=== PATIENT | male | born 1965 | race African-American/Black ===

== ENCOUNTER 2016-09-06 20:22 | Inpatient (IN) | payer SELFPAY ==
[~2016-09-06] VITALS: Ht 185.4 cm; Wt 95.4 kg
[2016-09-06 20:23] VITALS: BP 222/132; PULSE 116; RESP 18; TEMP 98.8; O2SAT 100
[2016-09-06 20:47] VITALS: BP 224/131; PULSE 108; RESP 18; O2SAT 98
[2016-09-06] MEDS ORDERED: MULTTAB67 PO (20:49)
--- NOTE | 2016-09-06 20:56 | PD ---
HPI Chief Complaint: Hypertension Time Seen by Provider: 20:46 Travel History International Travel<30 days: No Contact w/Intl Traveler<30days: [place] Traveled to: [facility] Traveled to known affect area: No History of Present Illness HPI This is a 51-year-old male who is from [place] who presents to the emergency department having had several days pulsating in his head, feeling like his hearing his blood vessels in his head, constant, moderate severity having checked his blood pressure at home and it was in the 250s. His gave him some garlic but his symptoms did not improve. He denies any associated vomiting , numbness, weakness, difficulty walking or difficulty talking. He denies any chest pain or trouble breathing. He has been told his blood pressures been high in the past but he doesn't take any medicines. He just takes iron supplements and multivitamins. He does say several weeks ago he tried a sample of something from the [employer] store called [employer] that he hasn't taken anything in the past week or 2. He denies taking any decongestants, using any drugs and he doesn't drink alcohol. PFSH Past Medical History Cardiovascular Problems: Yes (HTN) Social History Alcohol Use: No Tobacco Use: No Substance Use: No Allergies-Medications (Allergen,Severity, Reaction): Coded Allergies: Contrast Media (Verified Allergy, Intermediate, 09/06/16) swelling Reported Meds & Prescriptions Reported Meds & Active Scripts Active Reported Multiple Vitamin 1 Tab 1 Tab PO DAILY Review of Systems Except as stated in HPI: all other systems reviewed are Neg Physical Exam Narrative GENERAL:Well appearing, no acute distress SKIN: Focused skin assessment warm and dry. HEAD: Atraumatic. Normocephalic. EYES: Pupils equal and round. No injection or drainage. ENT: Moist mucous membranes NECK: Trachea midline. CARDIOVASCULAR: Regular rate and rhythm. No murmur appreciated. RESPIRATORY: Clear to auscultation. Breath sounds equal bilaterally. GASTROINTESTINAL: Abdomen soft, non-tender, nondistended. MUSCULOSKELETAL: No obvious deformities. NEUROLOGICAL: Awake and alert. No obvious cranial nerve deficits. No dysarthria or aphasia. Moving all extremities. PSYCHIATRIC: Appropriate mood and affect; insight and judgment normal. Data Data Last Documented VS Vital Signs Date Time Temp Pulse Resp B/P Pulse Ox O2 Delivery O2 Flow Rate FiO2 09/06/16 23:06 81 18 206/127 99 Room Air 09/06/16 20:23 98.8 Orders Complete Blood Count With Diff (09/06/16 20:54) Comprehensive Metabolic Panel (09/06/16 20:54) ^ Insert Iv (09/06/16 20:54) Thyroid Stimulating Hormone (09/06/16 20:54) Electrocardiogram (09/06/16 ) Ct Brain W/O Iv Contrast(Rout) (09/06/16 ) Labetalol Inj (Trandate Inj) (09/06/16 21:00) Sodium Chlor 0.9% 1000 Ml Inj (Ns 1000 M (09/06/16 21:00) Troponin I (09/06/16 22:57) Enalaprilat Inj (Vasotec Inj) (09/06/16 23:15) Admit Order (Ed Use Only) (09/06/16 23:11) Place In Observation (09/06/16 ) Vital Signs (Adult) BEATRICE.Q4H (09/06/16 23:11) Activity Oob Ad Brenda (09/06/16 23:11) Sodium Chloride 0.9% Flush (Ns Flush) (09/06/16 23:15) Sodium Chloride 0.9% Flush (Ns Flush) (09/07/16 09:00) Labs Laboratory Tests Test 09/06/16 21:45 White Blood Count 8.3 TH/MM3 Red Blood Count 4.72 MIL/MM3 Hemoglobin 13.8 GM/DL Hematocrit 39.2 % Mean Corpuscular Volume 83.1 FL Mean Corpuscular Hemoglobin 29.3 PG Mean Corpuscular Hemoglobin 35.3 % Concent Red Cell Distribution Width 12.8 % Platelet Count 171 TH/MM3 Mean Platelet Volume 10.0 FL Neutrophils (%) (Auto) 63.2 % Lymphocytes (%) (Auto) 24.3 % Monocytes (%) (Auto) 7.3 % Eosinophils (%) (Auto) 4.0 % Basophils (%) (Auto) 1.2 % Neutrophils # (Auto) 5.3 TH/MM3 Lymphocytes # (Auto) 2.0 TH/MM3 Monocytes # (Auto) 0.6 TH/MM3 Eosinophils # (Auto) 0.3 TH/MM3 Basophils # (Auto) 0.1 TH/MM3 CBC Comment DIFF FINAL Differential Comment Sodium Level 140 MEQ/L Potassium Level 3.6 MEQ/L Chloride Level 104 MEQ/L Carbon Dioxide Level 28.8 MEQ/L Anion Gap 7 MEQ/L Blood Urea Nitrogen 16 MG/DL Creatinine 1.22 MG/DL Estimat Glomerular Filtration 75 ML/MIN Rate Random Glucose 127 MG/DL Calcium Level 8.9 MG/DL Total Bilirubin 0.6 MG/DL Aspartate Amino Transf 39 U/L (AST/SGOT) Alanine Aminotransferase 49 U/L (ALT/SGPT) Alkaline Phosphatase 63 U/L Troponin I 0.03 NG/ML Total Protein 7.7 GM/DL Albumin 3.9 GM/DL Thyroid Stimulating Hormone 0.703 uIU/ML 3rd Gen [facility] Medical Decision Making Medical Screen Exam Complete: Yes Emergency Medical Condition: Yes Interpretation(s) No leukocytosis Electrolytes are reassuring Troponin is normal TSH is normal Urinalysis is negative for infection Urine drug screen is negative Last [address] 09/06/16 0000 Signed Impressions: Service Date/Time: Tuesday, September 06, 2016 21:08 - CONCLUSION: Negative noncontrast CT brain. Austyn Stark MD Differential Diagnosis Hypertensive urgency, hypertensive emergency, hyperthyroidism, acute alcohol withdrawal, substance intoxication Narrative Course This is a 51-year-old male who presents the emergency department with tachycardia and hypertension with some generalized weakness and headache. He is markedly hypertensive on arrival. He was given 30 mg total of labetalol but has now opted not improved in the emergency department. He is normal neurologic exam, CT was negative and labs are reassuring. I couldn't elicit any substances that the patient might have ingested to causes vital signs to appear the way they do. I think the patient requires admission for continued antihypertensive therapy and workup of his refractory hypertension Critical Care Narrative Aggregate critical care time was 35 minutes. Time to perform other separately billable procedures was not included in the critical care time. My time did not include minutes spent treating any other patients simultaneously or on activities that did not directly contribute to the patient's treatment. The services I provided to this patient were to treat and/or prevent clinically significant deterioration that could result in: disability, I provided critical care services requiring my management, as noted below: Chart data review, documentation time, medication orders and management, vital sign assessments/reviewing monitor data, ordering and reviewing lab tests, ordering and interpreting/reviewing x-rays and diagnostic studies, care of the patient and discussion of the patient with the admitting physicians. Diagnosis Primary Impression: Hypertensive urgency Admitting Information Admitting Physician Requests: it Agnes Marquez MD Sep 06, 2016 20:56
[2016-09-06] MEDS ORDERED: SODIUM CHLOR 0.9% 1000 ML INJ 1,000 ML IV SCH ×2 (21:00→23:26)
[2016-09-06] MEDS: LABETALOL HCL 100 MG/20 ML VIAL IV PUSH PRN ×3 (21:05→22:20)
[2016-09-06 21:50] VITALS: BP 193/115; PULSE 85; RESP 18; O2SAT 98
[2016-09-06 22:18] LABS: AUTOMATED NEUTROPHIL # 5.3 TH/MM3 (1.8-7.7); BASOPHIL # 0.1 TH/MM3 (0-0.2); BASOPHIL % 1.2 % (0.0-2.0); EOSINOPHIL # 0.3 TH/MM3 (0-0.4); HEMATOCRIT 39.2 % (39.0-51.0); HEMO FLAGS DIFF FINAL; LYMPH % 24.3 % (9.0-44.0); MEAN CELL VOLUME 83.1 FL (80.0-100.0); MEAN CORPUSCULAR HEMOGLOBIN 29.3 PG (27.0-34.0); MEAN CORPUSCULAR HGB CONC 35.3 % (32.0-36.0); MONO % 7.3 % (0.0-8.0); NEUT % 63.2 % (16.0-70.0); PLATELET COUNT 171 TH/MM3 (150-450); RED BLOOD COUNT 4.72 MIL/MM3 (4.50-5.90); RED CELL DISTRIBUTION WIDTH 12.8 % (11.6-17.2); WHITE BLOOD COUNT 8.3 TH/MM3 (4.0-11.0)
[2016-09-06 22:19] VITALS: BP 209/125; PULSE 86; RESP 18; O2SAT 99
--- NOTE | 2016-09-06 22:20 | RADRPT ---
EXAM DATE/TIME: 09/06/2016 21:08 [facility] COMPARISON: No previous studies available for comparison. INDICATIONS : Cephalgia with elevated blood pressure. RADIATION DOSE: 56.53 CTDIvol (mGy) MEDICAL HISTORY : Hypertension. SURGICAL HISTORY : None. ENCOUNTER: Initial ACUITY: 1 day PAIN SCALE: 10/10 LOCATION: cranial TECHNIQUE: Multiple contiguous axial images were obtained of the head. Using automated exposure control and adj ustment of the mA and/or kV according to patient size, radiation dose was kept as low as reasonably a chievable to obtain optimal diagnostic quality images. FINDINGS: CEREBRUM: The ventricles are normal for age. No evidence of midline shift, mass lesion, hemorrhage or acute in farction. No extra-axial fluid collections are seen. POSTERIOR FOSSA: The cerebellum and brainstem are intact. The 4th ventricle is midline. The cerebellopontine angle i s unremarkable. EXTRACRANIAL: The visualized portion of the orbits is intact. SKULL: The calvaria is intact. No evidence of skull fracture. CONCLUSION: Negative noncontrast CT brain. Austyn Stark MD on September 06, 2016 at 22:18 Board Certified Radiologist. This report was verified electronically.
[2016-09-06 22:45] LABS: ALT (GPT) 49 U/L (12-78); ANION GAP 7 MEQ/L (5-15); AST (GOT) 39 U/L (15-37); BICARBONATE 28.8 MEQ/L (21.0-32.0); BLOOD UREA NITROGEN 16 MG/DL (7-18); CHLORIDE 104 MEQ/L (98-107); GLOMERULAR FILTRATION RATE 75 ML/MIN (>89); POTASSIUM 3.6 MEQ/L (3.5-5.1); SODIUM (NA) 140 MEQ/L (136-145)
[2016-09-06 22:52] LABS: ALKALINE PHOSPHATASE 63 U/L (45-117); TOTAL BILIRUBIN ADULT 0.6 MG/DL (0.2-1.0)
[2016-09-06 23:06] VITALS: BP 206/127; PULSE 81; RESP 18; O2SAT 99
[2016-09-06] MEDS ORDERED: ENALAPRILAT 2.5 MG/2 ML VIAL IV PUSH ONE (23:15)
[2016-09-06] MEDS ORDERED: SODIUM CHLORIDE 0.9% FLUSH 10 ML FLUSH IV FLUSH SCH (23:15)
[2016-09-06 23:25] VITALS: BP 208/123; PULSE 81; RESP 16; O2SAT 100
[2016-09-06] MEDS ORDERED: ONDANSETRON HCL 4 MG/2 ML VIAL IVP PRN (23:30)
[2016-09-06] MEDS ORDERED: BISACODYL 10 MG SUPP RECTAL PRN (23:30)
[2016-09-06] MEDS ORDERED: TEMAZEPAM 15 MG CAP PO PRN (23:30)
[2016-09-06] MEDS ORDERED: ACETAMINOPHEN 325 MG TAB PO PRN (23:30)
[2016-09-06] MEDS ORDERED: cloNIDine HCL 0.1 MG TAB PO PRN (23:30)
[2016-09-06] MEDS ORDERED: hydrALAZINE HCL 20 MG/ML VIAL IV PRN (23:30)
[2016-09-06] MEDS ORDERED: SODIUM CHLORIDE 0.9% FLUSH 10 ML FLUSH IV FLUSH PRN (23:30)
[2016-09-06] MEDS ORDERED: LACTULOSE SYRUP 20 GM/30 ML CUP PO PRN (23:30)
[2016-09-06] MEDS ORDERED: niCARdipine INJ 25 MG in SODIUM CHLOR 0.9% 250 ML INJ 250 ML IV ONE (23:30)
[2016-09-06] MEDS ORDERED: SENNOSIDES 8.6 MG TAB PO PRN (23:30)
[2016-09-06] MEDS ORDERED: MAGNESIUM HYDROXIDE SUSP 30 ML CUP PO PRN (23:30)
[2016-09-06] MEDS ORDERED: IBUPROFEN 400 MG TAB PO PRN (23:30)
--- NOTE | 2016-09-06 23:32 | HHI.HP ---
[facility] Service Family Medicine Primary Care Physician No Primary Care Physician Admission Diagnosis hypertensive urgency Diagnoses: International Travel<30 Days: No Contact w/Intl Traveler<30days: [place] Traveled to: [facility] Known Affected Area: No History of Present Illness Mr. Edwin marquez 51 y/o M with a PMHx of HTN presenting with a pounding headache for several days. He states that he feels that a "drum was beating in his head" for the last 3-4 days. He had a friend checked his BP at home and was elevated, but is not able to tell me the exact SBP and DBP. He tried to use garlic to lower his BP, but his symptoms did not improve so he decided to come to the hospital for evaluation. He states that he was diagnosed with HTN in the past in [place], but was not started on any medications. He then changed his diet and his BP was controlled per his report. However his diet has not been well controlled recently which he believes could be causing his symptoms. Denies any vision changes, numbness, weakness, difficulty ambulating, difficulty talking, chest pain, SOB, or NVD. He has seen a physician in [place], but not in "quite some time." He has been in [place] for the past 3 months visiting friends. His only medication is an iron supplement for anemia. Recently he has tried OTC Neugenix (testosterone booster). Review of Systems Constitutional: DENIES: Fever, Weight gain, Weight loss, Chills, Dizziness, Night Sweats Endocrine: DENIES: Polyuria Eyes: DENIES: Blurred vision, Diplopia Ears, nose, mouth, throat: DENIES: Throat pain, Running Nose Respiratory: DENIES: Cough, Shortness of breath Cardiovascular: DENIES: Chest pain, Palpitations Gastrointestinal: DENIES: Abdominal pain, Constipation, Diarrhea, Nausea, Vomiting Genitourinary: DENIES: Dysuria Musculoskeletal: DENIES: Joint pain Hematologic/lymphatic: DENIES: Lymphadenopathy Neurologic: COMPLAINS OF: Headache Psychiatric: DENIES: Mood changes Past Family Social History Past Medical History Anemia - currently on iron replacement HTN Past Surgical History Denies any PSHx Reported Medications Newgenics - testosterone supplementation Iron supplements Allergies: Coded Allergies: Contrast Media (Verified Allergy, Intermediate, 09/06/16) swelling Family History Father - from "high blood pressure" Mother - from unknown cause, DM Multiple brothers and sister, no medical problems reported including sudden cardiac , [place], ACS. Social History Visiting friends from [place] for the past 3 months. 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 Smoke - Denies Alcohol - Drinks wine occasionally, with last drink over 2 months ago Illicit - Denies any illicit drug use Physical Exam Vital Signs Vital Signs Date Time Temp Pulse Resp B/P Pulse Ox O2 Delivery O2 Flow Rate FiO2 09/06/16 23:25 81 16 208/123 100 09/06/16 23:06 81 18 206/127 99 Room Air 09/06/16 22:19 86 18 209/125 99 Room Air 09/06/16 21:50 85 18 193/115 98 Room Air 09/06/16 20:47 108 18 224/131 98 Room Air 09/06/16 20:23 98.8 116 18 222/132 100 Room Air Physical Exam GENERAL: Well-nourished, well-developed patient 51-year-old male lying in bed in no acute distress. SKIN: Warm and dry. No rash. HEENT: Atraumatic, normocephalic with EOMI. PERRLA. BL conjunctival injection with tearing of the eyes. Oropharynx clear with no erythema or exudate. MMM. No LAD or JVD appreciated. No rhinorrhea. CARDIOVASCULAR: Regular rate and rhythm without obvious murmurs, gallops, or rubs. RESPIRATORY: Clear to auscultation bilaterally with no CRW. No increased work of breathing. GASTROINTESTINAL: Abdomen soft, non-tender, nondistended with positive bowel sounds. No renal bruits appreciated. No masses or hepatosplenomegaly appreciated. MUSCULOSKELETAL: No cyanosis or edema. Strength grossly WNL. 2+ pulses in all 4 extremities. BACK: Nontender without obvious deformity. No CVA tenderness. NEURO/PSYCH: Afocal. Awake, alert, and oriented x3. Cranial nerves II through XII intact. No dysarthria or aphasia. Strength and sensation in all 4 extremities within normal limits. No focal abnormalities. Appropriate judgment, speech, and interaction with examiner. Laboratory Laboratory Tests Test 09/06/16 21:45 White Blood Count 8.3 Red Blood Count 4.72 Hemoglobin 13.8 Hematocrit 39.2 Mean Corpuscular Volume 83.1 Mean Corpuscular Hemoglobin 29.3 Mean Corpuscular Hemoglobin 35.3 Concent Red Cell Distribution Width 12.8 Platelet Count 171 Mean Platelet Volume 10.0 Neutrophils (%) (Auto) 63.2 Lymphocytes (%) (Auto) 24.3 Monocytes (%) (Auto) 7.3 Eosinophils (%) (Auto) 4.0 Basophils (%) (Auto) 1.2 Neutrophils # (Auto) 5.3 Lymphocytes # (Auto) 2.0 Monocytes # (Auto) 0.6 Eosinophils # (Auto) 0.3 Basophils # (Auto) 0.1 CBC Comment DIFF FINAL Differential Comment Sodium Level 140 Potassium Level 3.6 Chloride Level 104 Carbon Dioxide Level 28.8 Anion Gap 7 Blood Urea Nitrogen 16 Creatinine 1.22 Estimat Glomerular Filtration 75 Rate Random Glucose 127 Calcium Level 8.9 Total Bilirubin 0.6 Aspartate Amino Transf 39 (AST/SGOT) Alanine Aminotransferase 49 (ALT/SGPT) Alkaline Phosphatase 63 Troponin I 0.03 Total Protein 7.7 Albumin 3.9 Thyroid Stimulating Hormone 0.703 3rd Gen Result Diagram: 09/06/16 21409/06/16 214 Imaging Last [address] 09/06/16 0000 Signed Impressions: Service Date/Time: Tuesday, September 06, 2016 21:08 - CONCLUSION: Negative noncontrast CT brain. Austyn Stark MD Assessment and Plan Assessment and Plan Mr. Pineda alma 51 y/o M with a PMHx of HTN presenting with hypertensive urgency. He will be admitted for treatment and observation of his blood pressure. Code Status Full Discussed Condition With Dr. Motta, ER Physician Dr. Valenzuela Problem List: (1) Hypertensive urgency Status: Acute Plan: Patient with history of hypertension presenting with hypertensive urgency. On presentation his blood pressure was 222/132. Currently on examination his blood pressure is 208/117 without signs of organ damage. He will be admitted to the ICU for further monitoring and lowering of his bread pressure per nicardipine protocol with a goal of lowering his BP by 20% in the first 24 hours. Etiology possibly from chronic untreated HTN or recent addition of Nugenix (testosterone enhancement). Head CT: Negative noncontrast CT brain. EKG: Sinus tachycardia to a rate of 103. First-degree AV block with WI interval of 0.213. Left ventricular hypertrophy (per medical team read) CBC: WBC 8.3, H/H 13/39, platelets 171 CMP: Glucose 127, AST 39, otherwise within normal limits Troponin: 0.03 TSH 0.703 UA: Negative Urine toxicology: Negative Lipid profile: Pending Regular diet with salt restriction Cardiac monitoring Strict I/Os Pulse oximetry with supplemental oxygen when necessary Admission to the ICU Medications: 1 L normal saline bolus, labetalol 10 mg 3, and Vasotec 1 given in ER Labetalol 10 mg IV every 20 minutes when necessary for BP greater than 200/100 Clonidine 0.1 mg by mouth every 6 hours for BP >180/100 (2) Nutrition, metabolism, and development symptoms Status: Acute Plan: Fluids: Tolerating fluids were mouth Diet: Regular diet as tolerated with sodium restriction Electrolytes: Within normal limits, continue to monitor Prophylaxis: Restoril when necessary for insomnia, Zofran when necessary for nausea/vomiting, Tylenol PRN for pain, Constipation regimen (3) No contraindication to deep vein thrombosis (DVT) prophylaxis Status: Acute Plan: Heparin 5000 units every 8 hours SCD/TEDs Physician Certification 2 Midnight Certification Type: Admission for Inpatient Services Order for Inpatient Services The services are ordered in accordance with Medicare regulations or non- Medicare payer requirements, as applicable. In the case of services not specified as inpatient-only, they are appropriately provided as inpatient services in accordance with the 2-midnight benchmark. Estimated LOS (days): 3 3 days is the estimated time the patient will need to remain in the hospital, assuming treatment plan goals are met and no additional complications. Post-Hospital Plan: Home Sea Braxton MD R1 Sep 06, 2016 23:31
[2016-09-06 23:47] LABS: BLOOD, URINE NEG (NEG); COMMENT (UR) CULT NOT INDICATED; CULTURE IF INDICATED CULT NOT INDICATED; GLUCOSE,URINE NEG (NEG); KETONE, URINE NEG (NEG); NITRITE,URINE NEG (NEG); PH, URINE 7.5 (5.0-8.5); URINE COLOR LIGHT-YELLOW (YELLW/STRAW)
[2016-09-06 23:54] LABS: AMPHETAMINE, URINE NEG (NEG); BARBITURATES, URINE NEG (NEG); COCAINE, URINE NEG (NEG)
[2016-09-07] VITALS (18 sets, daily range): BP systolic 129–191; BP diastolic 72–117; PULSE 65–88; RESP 15–25; TEMP 98–98.9; O2SAT 97–100
[2016-09-07] MEDS ORDERED: CHLORHEXIDINE GLUCONATE 2 % 1 PACK (2 CLOTHS)(extra cloths) TOPICAL PRN (01:00)
[2016-09-07] MEDS: CHLORHEXIDINE GLUCONATE 2 % 1 PACK (2 CLOTHS)(taper/protocol) TOPICAL SCH ×2 (03:58→22:03)
[2016-09-07] MEDS: HEPARIN SODIUM - SQ 10,000 UNITS/ML VIAL SQ SCH ×3 (06:08→22:03)
[2016-09-07 06:30] LABS: AUTOMATED NEUTROPHIL # 4.9 TH/MM3 (1.8-7.7); BASOPHIL # 0.1 TH/MM3 (0-0.2); BASOPHIL % 0.8 % (0.0-2.0); EOSINOPHIL # 0.3 TH/MM3 (0-0.4); EOSINOPHIL % 3.5 % (0.0-4.0); HEMATOCRIT 40.7 % (39.0-51.0); HEMO FLAGS DIFF FINAL; LYMPH % 24.9 % (9.0-44.0); LYMPHOCYTE # 1.9 TH/MM3 (1.0-4.8); MEAN CELL VOLUME 83.6 FL (80.0-100.0); MEAN CORPUSCULAR HEMOGLOBIN 29.8 PG (27.0-34.0); MEAN CORPUSCULAR HGB CONC 35.6 % (32.0-36.0); MONO % 6.7 % (0.0-8.0); NEUT % 64.1 % (16.0-70.0); PLATELET COUNT 156 TH/MM3 (150-450); RED BLOOD COUNT 4.88 MIL/MM3 (4.50-5.90); RED CELL DISTRIBUTION WIDTH 12.6 % (11.6-17.2); WHITE BLOOD COUNT 7.6 TH/MM3 (4.0-11.0)
[2016-09-07 07:23] LABS: BICARBONATE 27.5 MEQ/L (21.0-32.0); POTASSIUM 3.5 MEQ/L (3.5-5.1)
[2016-09-07] MEDS ORDERED: POTASSIUM CHLORIDE 10 MEQ CONTROLLED RELEASE TAB PO ONE (07:45)
[2016-09-07] MEDS: DOCUSATE SODIUM 50 MG/SENNA 8.6 MG TAB PO SCH ×2 (09:13→22:03)
[2016-09-07] MEDS: SODIUM CHLORIDE 0.9% FLUSH 10 ML FLUSH IV FLUSH SCH ×3 (09:14→22:03)
--- NOTE | 2016-09-07 11:50 | HHI.FPPN ---
Subjective Remarks Mr. Pineda is a 51-year-old male from [place] who presented to the emergency department with a throbbing, pounding headache for the day prior to admission. He has history of previous similar problem, but this headache is more severe. He is here visiting friends and was given garlic as a therapy for his hypertension but this did not seem to help. He is on no medication for his blood pressure. He had no other symptoms at the time of presentation. At home, he takes iron, and a medication [id number] that has been vitamins and some sort of testosterone minute. Please see history and physical examination for this hospitalization for additional historical details including past, family, social history and review of systems at the time of admission. This morning he reports that he last took that perhaps 2 weeks ago. He says his headache is much improved, no throbbing. Otherwise has no chest pain no shortness of breath no difficulty with bowel or bladder no fever or chills. Objective Vitals Vital Signs Date Time Temp Pulse Resp B/P Pulse Ox O2 Delivery O2 Flow Rate FiO2 09/07/16 10:00 78 09/07/16 09:50 100 21 09/07/16 08:00 75 09/07/16 08:00 98.8 75 23 159/92 100 09/07/16 08:00 75 09/07/16 07:00 79 23 155/88 98 09/07/16 06:00 79 09/07/16 04:00 98.9 77 15 129/72 97 09/07/16 04:00 77 09/07/16 03:00 154/88 09/07/16 02:00 86 09/07/16 01:00 98.7 88 25 170/102 99 09/07/16 00:47 87 22 183/105 99 09/07/16 00:33 93 16 169/100 95 09/07/16 00:20 81 16 183/100 100 Room Air 09/07/16 00:06 99 21 09/07/16 00:00 80 16 191/117 100 Room Air 09/06/16 23:25 81 16 208/123 100 09/06/16 23:06 81 18 206/127 99 Room Air 09/06/16 22:19 86 18 209/125 99 Room Air 09/06/16 21:50 85 18 193/115 98 Room Air 09/06/16 20:47 108 18 224/131 98 Room Air 09/06/16 20:23 98.8 116 18 222/132 100 Room Air I/O 09/06/16 09/06/16 09/06/16 09/07/16 09/07/16 09/07/16 07:00 15:00 23:00 07:00 15:00 23:00 Intake Total 350 ml Output Total 800 ml 1950 ml Balance -800 ml -1600 ml Intake IV Total 350 ml Output Urine Total 800 ml 1950 ml # Voids 1 # Bowel Movements 0 Result Diagram: 09/07/16 0442 09/07/16 0442 Other Results Laboratory Tests Test 09/06/16 09/06/16 09/07/16 09/07/16 21:45 23:30 00:45 04:42 White Blood Count 8.3 TH/MM3 7.6 TH/MM3 Red Blood Count 4.72 MIL/MM3 4.88 MIL/MM3 Hemoglobin 13.8 GM/DL 14.5 GM/DL Hematocrit 39.2 % 40.7 % Mean Corpuscular Volume 83.1 FL 83.6 FL Mean Corpuscular Hemoglobin 29.3 PG 29.8 PG Mean Corpuscular Hemoglobin 35.3 % 35.6 % Concent Red Cell Distribution Width 12.8 % 12.6 % Platelet Count 171 TH/MM3 156 TH/MM3 Mean Platelet Volume 10.0 FL 9.7 FL Neutrophils (%) (Auto) 63.2 % 64.1 % Lymphocytes (%) (Auto) 24.3 % 24.9 % Monocytes (%) (Auto) 7.3 % 6.7 % Eosinophils (%) (Auto) 4.0 % 3.5 % Basophils (%) (Auto) 1.2 % 0.8 % Neutrophils # (Auto) 5.3 TH/MM3 4.9 TH/MM3 Lymphocytes # (Auto) 2.0 TH/MM3 1.9 TH/MM3 Monocytes # (Auto) 0.6 TH/MM3 0.5 TH/MM3 Eosinophils # (Auto) 0.3 TH/MM3 0.3 TH/MM3 Basophils # (Auto) 0.1 TH/MM3 0.1 TH/MM3 CBC Comment DIFF FINAL DIFF FINAL Differential Comment Sodium Level 140 MEQ/L 140 MEQ/L Potassium Level 3.6 MEQ/L 3.5 MEQ/L Chloride Level 104 MEQ/L 104 MEQ/L Carbon Dioxide Level 28.8 MEQ/L 27.5 MEQ/L Anion Gap 7 MEQ/L 9 MEQ/L Blood Urea Nitrogen 16 MG/DL 10 MG/DL Creatinine 1.22 MG/DL 0.91 MG/DL Estimat Glomerular Filtration 75 ML/MIN 106 ML/MIN Rate Random Glucose 127 MG/DL 94 MG/DL Calcium Level 8.9 MG/DL 8.7 MG/DL Total Bilirubin 0.6 MG/DL Aspartate Amino Transf 39 U/L (AST/SGOT) Alanine Aminotransferase 49 U/L (ALT/SGPT) Alkaline Phosphatase 63 U/L Troponin I 0.03 NG/ML 0.04 NG/ML Total Protein 7.7 GM/DL Albumin 3.9 GM/DL Thyroid Stimulating Hormone 0.703 uIU/ML 3rd Gen Urine Color LIGHT-YELLOW Urine Turbidity CLEAR Urine pH 7.5 Urine Specific Roff 1.004 Urine Protein NEG mg/dL Urine Glucose (UA) NEG mg/dL Urine Ketones NEG mg/dL Urine Occult Blood NEG Urine Nitrite NEG Urine Bilirubin NEG Urine Urobilinogen LESS THAN 2.0 MG/DL Urine Leukocyte Esterase NEG Microscopic Urinalysis Comment CULT NOT INDICATED Urine Opiates Screen NEG Urine Barbiturates Screen NEG Urine Amphetamines Screen NEG Urine Benzodiazepines Screen NEG Urine Cocaine Screen NEG Urine Cannabinoids Screen NEG Nasal Screen MRSA (PCR) MRSA NOT DETECTED Triglycerides Level 67 MG/DL Cholesterol Level 174 MG/DL LDL Cholesterol 115 MG/DL HDL Cholesterol 46.0 MG/DL Cholesterol/HDL Ratio 3.78 RATIO Imaging Last Impressions Head CT 09/06/16 0000 Signed Impressions: Service Date/Time: Tuesday, September 06, 2016 21:08 - CONCLUSION: Negative noncontrast CT brain. Austyn Stark MD Objective Remarks O. CONSTITUTIONAL/GEN: normally nourished, in NAD. EYES: conjunctiva normal, PERRLA, EOMI. NECK: thyroid midline. LUNGS: clear A-P, respiratory effort is normal. CARDIOVASCULAR: RR without murmur or gallop. No significant edema. GI/ABD: soft without masses, without organomegaly. Active bowel sounds, nontender : no CVA tenderness NEURO: No focal deficits. SKIN: color normal, no rashes noted. Accessory nipple right upper abdomen HEME/LYMPH: no bruising, petechia or significant adenopathy MUSC: back is normal in appearance. Extremities are normal in appearance. PSYCH/MENTAL STATUS: Alert and oriented x 3. A/P Assessment and Plan Mr. Pineda alma 51 y/o M with a PMHx of HTN presenting with hypertensive urgency. He was admitted for treatment and observation of his blood pressure which has improved significantly, to 159/92 most recently. Attending Attestation Patient seen and examined. Case reviewed and discussed with the resident team. Agree with plan of care as discussed with me and documented in the resident note. Problem List: (1) Hypertensive urgency Status: Acute Plan: Patient with history of hypertension presenting with hypertensive urgency. On presentation his blood pressure was 222/132. Currently on examination his blood pressure is 208/117 without signs of organ damage. He will be admitted to the ICU for further monitoring and lowering of his bread pressure per nicardipine protocol with a goal of lowering his BP by 20% in the first 24 hours. Etiology possibly from chronic untreated HTN or recent addition of Nugenix (testosterone enhancement). Head CT: Negative noncontrast CT brain. EKG: Sinus tachycardia to a rate of 103. First-degree AV block with SC interval of 0.213. Left ventricular hypertrophy (per medical team read) CBC: WBC 8.3, H/H 13/39, platelets 171 CMP: Glucose 127, AST 39, otherwise within normal limits Troponin: 0.03 TSH 0.703 UA: Negative Urine toxicology: Negative Lipid profile: Triglycerides 67, cholesterol 174, LDL 115, HDL 46 Regular diet with salt restriction Cardiac monitoring Strict I/Os Pulse oximetry with supplemental oxygen when necessary Transfer to regular floor Medications: 1 L normal saline bolus, labetalol 10 mg 3, and Vasotec 1 given in ER Labetalol 10 mg IV every 20 minutes when necessary for BP greater than 200/100 Clonidine 0.1 mg by mouth every 6 hours for BP >180/100 (2) Nutrition, metabolism, and development symptoms Status: Acute Plan: Fluids: Tolerating fluids were mouth Diet: Regular diet as tolerated with sodium restriction Electrolytes: Within normal limits, continue to monitor Prophylaxis: Restoril when necessary for insomnia, Zofran when necessary for nausea/vomiting, Tylenol PRN for pain, Constipation regimen (3) No contraindication to deep vein thrombosis (DVT) prophylaxis Status: Acute Plan: Heparin 5000 units every 8 hours AUTUMN/Ada Banuelos MD Sep 07, 2016 11:49
--- NOTE | 2016-09-07 14:12 | EKG ---
Date Performed: 09/06/2016 Time Performed: 20:58:11 PTAGE: 51 years EKG: SINUS TACHYCARDIA WITH FIRST DEGREE AV BLOCK POSSIBLE LEFT ATRIAL ENLARGEMENT POSSIBLE LEFT VENTRICULAR HYPERTROPHY NONSPECIFIC T-WAVE ABNORMALITY ABNORMAL ECG NO PREVIOUS TRACING DOCTOR: Dmitry Peña Interpretating Date/Time 09/07/2016 14:11:04
[2016-09-08] VITALS: BP 157/98; PULSE 69; RESP 18; TEMP 97.3; O2SAT 100
[2016-09-08] MEDS: HEPARIN SODIUM - SQ 10,000 UNITS/ML VIAL SQ SCH (04:07)
[2016-09-08 05:28] VITALS: BP 147/100; PULSE 76; RESP 18; TEMP 97.3; O2SAT 100
[2016-09-08 05:48] LABS: BICARBONATE 28.3 MEQ/L (21.0-32.0); POTASSIUM 3.5 MEQ/L (3.5-5.1)
[2016-09-08 08:00] VITALS: BP 167/101; PULSE 80; RESP 18; TEMP 97.6; O2SAT 97
[2016-09-08] MEDS: DOCUSATE SODIUM 50 MG/SENNA 8.6 MG TAB PO SCH (08:16)
[2016-09-08] MEDS: SODIUM CHLORIDE 0.9% FLUSH 10 ML FLUSH IV FLUSH SCH ×2 (08:17)
[2016-09-08 09:38] VITALS: BP 164/103
[2016-09-08] MEDS ORDERED: AMLO5TAB2 PO (09:43)
[2016-09-08] MEDS ORDERED: amLODIPine BESYLATE 5 MG TAB PO SCH (09:45)
--- NOTE | 2016-09-08 09:46 | HHI.DCPOC ---
Discharge Care Plan Diagnosis: (1) Hypertensive urgency Goals to Promote Your Health * To prevent worsening of your condition and complications * To maintain your health at the optimal level Directions to Meet Your Goals Take your medications as prescribed Follow your dietary instruction Follow activity as directed Keep your appointments as scheduled Take your immunizations and boosters as scheduled If your symptoms worsen call your PCP, if no PCP go to Urgent Care Center or Emergency Room Smoking is Dangerous to Your Health. Avoid second hand smoke Call the 24-hour hour crisis hotline for domestic abuse at Yfn Whitlock MD R2 Sep 08, 2016 09:46
[2016-09-08 12:00] VITALS: BP 167/107; PULSE 68; RESP 18; TEMP 98.3; O2SAT 99
--- NOTE | 2016-09-08 12:35 | HHI.FPPN ---
Subjective Remarks Patient seen and examined this morning. No acute events overnight. Blood pressure over the last 24 hours has been up to 178/114 which has symptomatically been treated by clonidine when necessary. Patient states that he is back to 100% and would like to be discharged. We discussed his medical management going forward and starting amlodipine daily to control his blood pressure. We also discussed follow-up care and his current insurance status. Otherwise he had no complaints and denied any fevers, chills, shortness of breath, chest pain, abdominal pain, NVD, or calf tenderness. (Sea Braxton MD R1) Objective Vitals Vital Signs Date Time Temp Pulse Resp B/P Pulse Ox O2 Delivery O2 Flow Rate FiO2 09/08/16 12:00 98.3 68 18 167/107 99 09/08/16 09:38 164/103 09/08/16 08:00 97.6 80 18 167/101 97 09/08/16 05:28 97.3 76 18 147/100 100 09/08/16 00:00 97.3 69 18 157/98 100 09/07/16 20:00 98.5 73 18 168/104 100 09/07/16 16:00 98.0 65 17 178/114 100 I/O 09/07/16 09/07/16 09/07/16 09/08/16 09/08/16 09/08/16 07:00 15:00 23:00 07:00 15:00 23:00 Intake Total 350 ml 240 ml 240 ml 120 ml Output Total 1950 ml 600 ml Balance -1600 ml -360 ml 240 ml 120 ml Intake Oral 240 ml 240 ml 120 ml IV Total 350 ml 0 ml Output Urine Total 1950 ml 600 ml # Voids 1 0 # Bowel Movements 0 0 0 0 (Sea Braxton MD R1) Result Diagram: 09/07/16 0442 09/08/16 0435 Objective Remarks GENERAL: Well-nourished, well-developed patient sitting up in bed in no acute distress. SKIN: Warm and dry. No rash. HEENT: Atraumatic, normocephalic with EOMI. No conjunctival injection or tearing. No LAD or JVD appreciated. BS membranes moist. No rhinorrhea. CARDIOVASCULAR: Regular rate and rhythm without obvious murmurs, gallops, or rubs. RESPIRATORY: Clear to auscultation bilaterally with CRW. GASTROINTESTINAL: Abdomen soft, non-tender, nondistended. BS WNL. MUSCULOSKELETAL: No cyanosis or edema. Strength grossly WNL. 2+ pulses in all extremities NEURO/PSYCH: Afocal. Awake, alert, and oriented x3. (Sea Braxton MD R1) A/P Assessment and Plan Mr. Edwin marquez 51 y/o M with a PMHx of HTN presenting with hypertensive urgency. Discharge Planning Today pending case management discussion for follow-up medical management. ( Sea Braxton MD R1) Attending Attestation Patient seen and examined. Case reviewed and discussed with the resident team. Agree with plan of care as discussed with me and documented in the resident note. (Ada Willett MD) Problem List: (1) Hypertensive urgency Status: Acute Plan: Patient with history of hypertension presenting with hypertensive urgency. On presentation his blood pressure was 222/132. Currently on examination his blood pressure is 208/117 without signs of organ damage. He will be admitted to the ICU for further monitoring and lowering of his bread pressure per nicardipine protocol with a goal of lowering his BP by 20% in the first 24 hours. Etiology possibly from chronic untreated HTN or recent addition of Nugenix (testosterone enhancement). Head CT: Negative noncontrast CT brain. EKG: Sinus tachycardia to a rate of 103. First-degree AV block with ND interval of 0.213. Left ventricular hypertrophy (per medical team read) CBC: WBC 8.3, H/H 13/39, platelets 171 CMP: Glucose 127, AST 39, otherwise within normal limits --Repeat BMP on 09/08: WNL Troponin: 0.03 TSH 0.703 UA: Negative Urine toxicology: Negative Lipid profile: Triglycerides 67, cholesterol 174, LDL 115, HDL 46 --Patient to be discharged home with appropriate follow up for further management of his HTN in 1 week. Patient was provided information on the [facility] to assist with follow up appointments. He was also instructed that Amlodipine is available on the [facility] list. Medications: Patient be discharged home on amlodipine 5 mg daily. (2) Nutrition, metabolism, and development symptoms Status: Acute Plan: Fluids: Tolerating fluids were mouth Diet: Regular diet as tolerated with sodium restriction Electrolytes: Within normal limits (3) No contraindication to deep vein thrombosis (DVT) prophylaxis Status: Acute Plan: DVT prophylaxis discontinued as patient will be discharged home today (Sea Braxton MD R1) Sea Braxton MD R1 Sep 08, 2016 12:35 Ada Willett MD Sep 09, 2016 08:21
[2016-09-08] MEDS ORDERED: ATOR40TA16 PO (12:49)
[2016-09-08] MEDS ORDERED: ASPI81CH CHEW (12:49)
--- NOTE | 2016-09-11 07:01 | HHI.DS ---
Discharge Summary Admission Date Sep 06, 2016 at 23:13 Discharge Date: Sep 08, 2016 Admitting Diagnosis hypertensive urgency (1) Hypertensive urgency Diagnosis: Principal Plan: Patient with history of hypertension presenting with hypertensive urgency. On presentation his blood pressure was 222/132. Currently on examination his blood pressure is 208/117 without signs of organ damage. He will be admitted to the ICU for further monitoring and lowering of his bread pressure per nicardipine protocol with a goal of lowering his BP by 20% in the first 24 hours. Etiology possibly from chronic untreated HTN or recent addition of Nugenix (testosterone enhancement). Head CT: Negative noncontrast CT brain. EKG: Sinus tachycardia to a rate of 103. First-degree AV block with W[place] interval of 0.213. Left ventricular hypertrophy (per medical team read) CBC: WBC 8.3, H/H 13/39, platelets 171 CMP: Glucose 127, AST 39, otherwise within normal limits --Repeat BMP on 09/08: WNL Troponin: 0.03 TSH 0.703 UA: Negative Urine toxicology: Negative Lipid profile: Triglycerides 67, cholesterol 174, LDL 115, HDL 46 --Patient to be discharged home with appropriate follow up for further management of his HTN in 1 week. Patient was provided information on the [facility] to assist with follow up appointments. He was also instructed that Amlodipine is available on the Free at [facility] list. Medications: Patient be discharged home on amlodipine 5 mg daily. (2) Nutrition, metabolism, and development symptoms Diagnosis: Secondary Plan: Fluids: Tolerating fluids were mouth Diet: Regular diet as tolerated with sodium restriction Electrolytes: Within normal limits (3) No contraindication to deep vein thrombosis (DVT) prophylaxis Diagnosis: Secondary Plan: DVT prophylaxis discontinued as patient will be discharged home today Consultants none Brief History Mr. Pineda alma 51 y/o M with a PMHx of HTN presenting with a pounding headache for several days. He states that he feels that a "drum was beating in his head" for the last 3-4 days. He had a friend checked his BP at home and was elevated, but is not able to tell me the exact SBP and DBP. He tried to use garlic to lower his BP, but his symptoms did not improve so he decided to come to the hospital for evaluation. He states that he was diagnosed with HTN in the past in [place], but was not started on any medications. He then changed his diet and his BP was controlled per his report. However his diet has not been well controlled recently which he believes could be causing his symptoms. Denies any vision changes, numbness, weakness, difficulty ambulating, difficulty talking, chest pain, SOB, or NVD. He has seen a physician in [place], but not in "quite some time." He has been in [place] for the past 3 months visiting friends. His only medication is an iron supplement for anemia. Recently he has tried OTC Neugenix (testosterone booster). CBC/BMP: 09/07/16 0442 09/08/16 0435 PE at Discharge GENERAL: Well-nourished, well-developed patient sitting up in bed in no acute distress. SKIN: Warm and dry. No rash. HEENT: Atraumatic, normocephalic with EOMI. No conjunctival injection or tearing. No LAD or JVD appreciated. BS membranes moist. No rhinorrhea. CARDIOVASCULAR: Regular rate and rhythm without obvious murmurs, gallops, or rubs. RESPIRATORY: Clear to auscultation bilaterally with CRW. GASTROINTESTINAL: Abdomen soft, non-tender, nondistended. BS WNL. MUSCULOSKELETAL: No cyanosis or edema. Strength grossly WNL. 2+ pulses in all extremities NEURO/PSYCH: Afocal. Awake, alert, and oriented x3. Hospital Course 51 year old male with history of HTN presented with pounding headache for several days. He was not at that time on any blood pressure medications. He was found to have hypertensive urgency with BP of 222/132. He did not have signs of end organ damage. He was started on a Nicardipine drip. Head CT was negative. EKG showed rate of 103, some left ventricular hypertrophy. Troponin was negative. TSH was normal range. UA was negative. By the time of discharge headaches were gone. His blood pressure was 167/107. He was discharged home on amlodipine 5 mg daily. He was instructed to go to the free clinic at [facility]. In addition, he was allotted one visit at the community clinic. He was instructed that medications will need to be titrated up over time and that a rapid decrease in blood pressure over the course of a couple days was not appropriate. Pt Condition on Discharge: Good Discharge Disposition: Discharge Home Discharge Instructions DIET: Follow Instructions for: Heart Healthy Diet Activities you can perform: Regular-No Restrictions Follow up Referrals: PCP Follow-up - 1 Week New Medications: Amlodipine (Amlodipine) 5 Mg Tab 5 MG PO DAILY Blood Pressure Management #30 Ref 0 TAB Aspirin (Aspirin) 81 Mg Chew 81 MG CHEW DAILY #30 Ref 0 TAB Atorvastatin (Atorvastatin) 40 Mg Tab 40 MG PO HS Cholesterol Management #30 Ref 0 TAB Continued Medications: Multiple Vitamin (Multiple Vitamin) 1 Tab 1 TAB PO DAILY Nutritional Supplement Ref 0 TAB Yfn Whitlock MD R2 Sep 11, 2016 07:01
== END 2016-09-08 14:45 | disposition home or self-care (01) | DRG 305 ==
LOC: NEPD 20:22 → NEDA 23:13 → HIME 09-07 00:40 → N07B 09-07 11:16
PROVIDERS: ADMIT Family Medicine; ATTEND Family Medicine
DX: I16.0 Hypertensive urgency (principal); D64.9 Anemia, unspecified; I10 Essential (primary) hypertension
CPT/HCPCS: 70450; 80048; 80053; 80061; 80307; 81001; 84443; 84484; 85025; 87641; 93005; 96361; 96374; 96375; 96376; J1644; J7030; J7050

== ENCOUNTER 2016-09-09 03:29 | Observation (INO) | payer SELFPAY ==
[~2016-09-09] VITALS: Ht 177.8 cm; Wt 75.0 kg
[2016-09-09] VITALS (11 sets, daily range): BP systolic 157–220; BP diastolic 92–123; PULSE 79–112; RESP 17–20; TEMP 97.9–99.4; O2SAT 97–100
[~2016-09-09 03:29] MED LIST: AMLO5TAB2 PO; ASPI81CH CHEW; ATOR40TA16 PO; MULTTAB67 PO
[2016-09-09] MEDS ORDERED: SODIUM CHLORIDE 0.9% FLUSH 10 ML FLUSH IVF PRN (04:30)
[2016-09-09] MEDS ORDERED: hydrALAZINE HCL 20 MG/ML VIAL IV PUSH ONE ×2 (04:30→05:15)
--- NOTE | 2016-09-09 04:37 | PD ---
HPI Chief Complaint: Hypertension Time Seen by Provider: 04:23 Travel History International Travel<30 days: No Contact w/Intl Traveler<30days: No Traveled to known affect area: No History of Present Illness HPI 51-year-old male here visiting from [place] with recent admission on 09/06/16, discharged yesterday for hypertensive urgency, back this morning for elevated blood pressure. Patient was discharged home with a prescription for amlodipine 5 mg, aspirin, and a statin. He states he took a dose of amlodipine at around 1 :00 AM, yet his blood pressure remains elevated at home. He is complaining of pounding noise in his head. He denies headache. No vision changes. No paresthesias or motor deficits. No chest pain or dyspnea. PFSH Past Medical History Cancer: No Cardiovascular Problems: Yes (hypertension) Cerebrovascular Accident: No Endocrine: No Genitourinary: No Immune Disorder: No Musculoskeletal: No Neurologic: Yes Psychiatric: No Reproductive: No Respiratory: No Migraines: Yes Social History Alcohol Use: No Tobacco Use: No Substance Use: No Allergies-Medications (Allergen,Severity, Reaction): Coded Allergies: Contrast Media (Verified Allergy, Intermediate, 09/09/16) swelling Reported Meds & Prescriptions Reported Meds & Active Scripts Active Aspirin 81 Mg Chew 81 Mg CHEW DAILY Atorvastatin (Atorvastatin Calcium) 40 Mg Tab 40 Mg PO HS Amlodipine (Amlodipine Besylate) 5 Mg Tab 5 Mg PO DAILY Reported Multiple Vitamin 1 Tab 1 Tab PO DAILY Review of Systems Except as stated in HPI: all other systems reviewed are Neg Physical Exam Narrative GENERAL: Well-developed, well-nourished, awake, alert, comfortable, no acute distress. SKIN: Focused skin assessment warm/dry. HEAD: Atraumatic. Normocephalic. EYES: Pupils equal and round. No scleral icterus. No injection or drainage. ENT: Mucous membranes pink and moist. NECK: Trachea midline. No JVD. CARDIOVASCULAR: Regular rate and rhythm. No murmur appreciated. RESPIRATORY: No accessory muscle use. Clear to auscultation. Breath sounds equal bilaterally. GASTROINTESTINAL: Abdomen soft, non-tender, nondistended. MUSCULOSKELETAL: No obvious deformities. No clubbing. No cyanosis. No edema. NEUROLOGICAL: Awake and alert. No obvious cranial nerve deficits. Motor grossly within normal limits. Normal speech. PSYCHIATRIC: Appropriate mood and affect; insight and judgment normal. Data Data Last Documented VS Vital Signs Date Time Temp Pulse Resp B/P Pulse Ox O2 Delivery O2 Flow Rate FiO2 09/09/16 06:00 102 17 171/98 97 Room Air 09/09/16 03:32 98.7 Orders Electrocardiogram (09/09/16 04:29) Basic Metabolic Panel (Bmp) (09/09/16 04:29) Ckmb (Isoenzyme) Profile (09/09/16 04:29) Complete Blood Count With Diff (09/09/16 04:29) Troponin I (09/09/16 04:29) Ecg Monitoring (09/09/16 04:29) Iv Access Insert/Monitor (09/09/16 04:29) Oximetry (09/09/16 04:29) Sodium Chloride 0.9% Flush (Ns Flush) (09/09/16 04:30) Hydralazine Inj (Apresoline Inj) (09/09/16 04:30) Hydralazine Inj (Apresoline Inj) (09/09/16 05:15) CKMB (09/09/16 04:40) CKMB% (09/09/16 04:40) Labs Laboratory Tests Test 09/09/16 04:40 White Blood Count 7.3 TH/MM3 Red Blood Count 5.19 MIL/MM3 Hemoglobin 14.8 GM/DL Hematocrit 43.8 % Mean Corpuscular Volume 84.5 FL Mean Corpuscular Hemoglobin 28.5 PG Mean Corpuscular Hemoglobin 33.7 % Concent Red Cell Distribution Width 12.7 % Platelet Count 164 TH/MM3 Mean Platelet Volume 9.5 FL Neutrophils (%) (Auto) 68.3 % Lymphocytes (%) (Auto) 20.5 % Monocytes (%) (Auto) 6.6 % Eosinophils (%) (Auto) 3.8 % Basophils (%) (Auto) 0.8 % Neutrophils # (Auto) 5.0 TH/MM3 Lymphocytes # (Auto) 1.5 TH/MM3 Monocytes # (Auto) 0.5 TH/MM3 Eosinophils # (Auto) 0.3 TH/MM3 Basophils # (Auto) 0.1 TH/MM3 CBC Comment DIFF FINAL Differential Comment Sodium Level 138 MEQ/L Potassium Level 3.6 MEQ/L Chloride Level 102 MEQ/L Carbon Dioxide Level 29.9 MEQ/L Anion Gap 6 MEQ/L Blood Urea Nitrogen 14 MG/DL Creatinine 1.13 MG/DL Estimat Glomerular Filtration 82 ML/MIN Rate Random Glucose 104 MG/DL Calcium Level 9.3 MG/DL Total Creatine Kinase 303 U/L Creatine Kinase MB 2.5 NG/ML Troponin I 0.02 NG/ML MDM Medical Decision Making Medical Screen Exam Complete: Yes Emergency Medical Condition: Yes Medical Record Reviewed: Yes Differential Diagnosis Uncontrolled hypertension, hypertensive crisis, hypertensive urgency Narrative Course Initial vital signs show heart rate 88, blood pressure 220/123, pulse ox 100% on room air, oral temp of 98.7F. CBC is unremarkable. BMP is unremarkable. Cardiac enzymes are negative. EKG shows LVH. Patient was given 2 doses of hydralazine with improvement in blood pressure to 171/98. On reassessment the patient's heart rate is now 110. He states that he now feels dizzy. There are no focal neurologic deficits. No headache. No chest pain. Given uncontrolled hypertension and now dizziness, the patient be readmitted to the medical videographer service. Case discussed with medical videographer Dr. Flores, and the patient will be admitted to their service under Dr. Willett. Diagnosis Primary Impression: Uncontrolled hypertension Admitting Information Admitting Physician Requests: Observation Luis Silverio MD Sep 09, 2016 04:37
[2016-09-09 05:04] LABS: BASOPHIL # 0.1 TH/MM3 (0-0.2); BASOPHIL % 0.8 % (0.0-2.0); EOSINOPHIL # 0.3 TH/MM3 (0-0.4); EOSINOPHIL % 3.8 % (0.0-4.0); HEMATOCRIT 43.8 % (39.0-51.0); HEMO FLAGS DIFF FINAL; LYMPH % 20.5 % (9.0-44.0); LYMPHOCYTE # 1.5 TH/MM3 (1.0-4.8); MEAN CELL VOLUME 84.5 FL (80.0-100.0); MEAN CORPUSCULAR HEMOGLOBIN 28.5 PG (27.0-34.0); MEAN CORPUSCULAR HGB CONC 33.7 % (32.0-36.0); MONO % 6.6 % (0.0-8.0); NEUT % 68.3 % (16.0-70.0); PLATELET COUNT 164 TH/MM3 (150-450); RED BLOOD COUNT 5.19 MIL/MM3 (4.50-5.90); RED CELL DISTRIBUTION WIDTH 12.7 % (11.6-17.2); WHITE BLOOD COUNT 7.3 TH/MM3 (4.0-11.0)
[2016-09-09 05:26] LABS: ANION GAP 6 MEQ/L (5-15); BICARBONATE 29.9 MEQ/L (21.0-32.0); BLOOD UREA NITROGEN 14 MG/DL (7-18); CHLORIDE 102 MEQ/L (98-107); GLOMERULAR FILTRATION RATE 82 ML/MIN (>89); POTASSIUM 3.6 MEQ/L (3.5-5.1); SODIUM (NA) 138 MEQ/L (136-145)
[2016-09-09 05:29] LABS: CREATINE KINASE 303 U/L (39-308)
[2016-09-09 05:41] LABS: CKMB 2.5 NG/ML (0.5-3.6)
--- NOTE | 2016-09-09 06:40 | HHI.HP ---
[facility] Service Family Medicine Primary Care Physician No Primary Care Physician Admission Diagnosis Diagnoses: International Travel<30 Days: No Contact w/Intl Traveler<30days: No Known Affected Area: No History of Present Illness Mr. Pineda is a pleasant 51 y/o visiting from [place], recently hospitalized at [facility] (discharged on 09/08) for hypertensive urgency. He returns to the ED early this AM with complaints of persistent headache and a pounding noise. After leaving the hospital, he had dinner and went to bed. He did not take his amlodipine 5 mg, because it was not back from the pharmacy. At 0100, he woke up with pounding in his headache and took 5 mg of amlodipine at that time. The headache and pounding noise was persistent even after taking 5 mg of amlodipine and 81 mg baby aspirin. He hears a pounding noise, especially when he lays down. Checked BP at home after waiting for a half an hour, 220-225 systolic / 110 diastolic. He is currently having a pounding noise. Not currently having any headaches. He denies any changes in vision. He denies any confusion. He denies any chest pain. He denies any shortness of breath. He denies any problems with bowel or bladder function. ROS: ++ palpitations / racing heart He received 2 doses of IV hydralazine 10 mg in the ED. His BP corrected from 220/123 to 171/98, although he became tachycardic to 107 bpm. Past Family Social History Past Medical History Past Medical History Anemia - currently on iron replacement HTN Past Surgical History Denies any PSHx Reported Medications Newgenics - testosterone supplementation Iron supplements Allergies: Coded Allergies: Contrast Media (Verified Allergy, Intermediate, 09/06/16) swelling Family History Father - from "high blood pressure" Mother - from unknown cause, DM Multiple brothers and sister, no medical problems reported including sudden cardiac , [place], ACS. Social History Visiting friends from [place] for the past 3 months. Works in [employer] back home in [place]. Smoke - Denies Alcohol - Drinks wine occasionally, with last drink over 2 months ago Illicit - Denies any illicit drug use Allergies: Coded Allergies: Contrast Media (Verified Allergy, Intermediate, 09/09/16) swelling Physical Exam Vital Signs Vital Signs Date Time Temp Pulse Resp B/P Pulse Ox O2 Delivery O2 Flow Rate FiO2 6/6/17 06:00 102 17 171/98 97 Room Air 09/09/16 05:25 107 19 182/106 99 09/09/16 05:05 95 17 181/110 100 09/09/16 04:46 93 20 204/122 99 Room Air 201/122 09/09/16 03:32 98.7 88 18 220/123 100 212/120 Physical Exam GENERAL: This is a well-nourished, well-developed patient, in no apparent distress. SKIN: No rashes, ecchymoses or lesions. Cool and dry. HEAD: Atraumatic. Normocephalic. No temporal or scalp tenderness. EYES: Pupils equal round and reactive. Extraocular motions intact. No scleral icterus. No injection or drainage. Lens haziness b/l. ENT: Nose without bleeding, purulent drainage or septal hematoma. Throat without erythema, tonsillar hypertrophy or exudate. Uvula midline. Airway patent. NECK: Trachea midline. No JVD or lymphadenopathy. Supple, nontender, no meningeal signs. CARDIOVASCULAR: Regular rate and rhythm. Faint 1/6 MERVAT at left sternal border with radiation into axilla. RESPIRATORY: Clear to auscultation. Breath sounds equal bilaterally. No wheezes , rales, or rhonchi. GASTROINTESTINAL: Abdomen soft, non-tender, nondistended. No hepato-splenomegaly , or palpable masses. No guarding. MUSCULOSKELETAL: Extremities without clubbing, cyanosis, or edema. No joint tenderness, effusion, or edema noted. No calf tenderness. Negative Homans sign bilaterally. NEUROLOGICAL: Awake and alert. Cranial nerves II through XII intact. Motor and sensory grossly within normal limits. Five out of 5 muscle strength in all muscle groups. Normal speech. Laboratory Laboratory Tests Test 09/09/16 04:40 White Blood Count 7.3 Red Blood Count 5.19 Hemoglobin 14.8 Hematocrit 43.8 Mean Corpuscular Volume 84.5 Mean Corpuscular Hemoglobin 28.5 Mean Corpuscular Hemoglobin 33.7 Concent Red Cell Distribution Width 12.7 Platelet Count 164 Mean Platelet Volume 9.5 Neutrophils (%) (Auto) 68.3 Lymphocytes (%) (Auto) 20.5 Monocytes (%) (Auto) 6.6 Eosinophils (%) (Auto) 3.8 Basophils (%) (Auto) 0.8 Neutrophils # (Auto) 5.0 Lymphocytes # (Auto) 1.5 Monocytes # (Auto) 0.5 Eosinophils # (Auto) 0.3 Basophils # (Auto) 0.1 CBC Comment DIFF FINAL Differential Comment Sodium Level 138 Potassium Level 3.6 Chloride Level 102 Carbon Dioxide Level 29.9 Anion Gap 6 Blood Urea Nitrogen 14 Creatinine 1.13 Estimat Glomerular Filtration 82 Rate Random Glucose 104 Calcium Level 9.3 Total Creatine Kinase 303 Creatine Kinase MB 2.5 Troponin I 0.02 Result Diagram: 09/09/1643909/09/16 044 Septic Shock Reassessment Heart: Regular rate and rhythm Lungs: Clear Skin: Warm Peripheral Pulses: Bounding Right Radial Bounding Left Radial Capillary Refill: <2 seconds Assessment and Plan Assessment and Plan Mr. Pineda is a pleasant 51 y/o black male with a PMHx significant for anemia and essential hypertension, presenting to [facility] ED for . He will be admitted for blood pressure stabilization and monitoring of vitals / end organ damage. Code Status Full Code. Problem List: (1) Uncontrolled hypertension Status: Acute Plan: Given 10 mg IV push of hydralazine x 2 in ED. BP reduced from 220/123 to 171/98. Troponin < 0.02. BUN/CR = 14 / 1.13 Alert and oriented. No focal neurologic findings suggestive of FOOTBALL PAD REPAIRER encephalopathy or damage. Head CT on 09/06 showed no acute disease. TSH on 09/06 was also WNL at 0.703. Continue with Amlodipine 5 mg daily. Monitor Vitals q 4 hours. Obtain EKG and CMP. Start Metoprolol 50 mg by mouth twice a day. Clonidine 0.1 mg every 6 hours when necessary systolic greater than 190. Goal systolic 180 mm Hg (20-25% of 220). (2) Nutrition, metabolism, and development symptoms Status: Acute Plan: Fluids: By mouth DVT ppx: SCDs GI ppx: Not indicated Electrolytes: At goal Admit to observation for BP stabilization. [facility] Team Cody Solorzano MD R2 Sep 09, 2016 06:40
[2016-09-09] MEDS ORDERED: MORPHINE SULFATE 4 MG/ML INJ IV PUSH PRN (07:15)
[2016-09-09] MEDS ORDERED: IBUPROFEN 600 MG TAB PO PRN (07:15)
[2016-09-09] MEDS ORDERED: cloNIDine HCL 0.1 MG TAB PO PRN (07:30)
[2016-09-09] MEDS: METOPROLOL TARTRATE 50 MG TAB PO SCH ×2 (11:14→19:49)
--- NOTE | 2016-09-09 15:48 | HHI.FPPN ---
Subjective Remarks Patient seen and examined, discussed with the medicine team. This is a 51-year-old female from [place] who was discharged yesterday from the hospital with a prescription for amlodipine for his elevated blood pressure. He took his prescription to the pharmacy, and to wait for it so he went home and went to sleep. He awoke around 12:30 AM today. A friend had picked up his medication for him but he noted that he had a pounding headache and this frightened him. He took an aspirin, he took his amlodipine and his cholesterol medication but his headache did not resolve so he presented to the emergency department where he was found to have elevated blood pressure. Please see history and physical examination for this readmission for additional historical details including past, family, social history and review of systems for this admission. When I see him, he is sitting up in bed, talking on the phone. He explains that , although we prescribed amlodipine because he's and because he could get it free at [facility], they charged him $70. He does feel better and understands now that he will need to take probably 2 medications, and to take his cholesterol medication at bedtime. Objective Vitals Vital Signs Date Time Temp Pulse Resp B/P Pulse Ox O2 Delivery O2 Flow Rate FiO2 09/09/16 09:30 99.4 112 18 170/97 100 09/09/16 08:25 116 15 159/92 100 09/09/16 06:50 109 18 176/95 99 Room Air 09/09/16 06:00 102 17 171/98 97 Room Air 09/09/16 05:25 107 19 182/106 99 09/09/16 05:05 95 17 181/110 100 09/09/16 04:46 93 20 204/122 99 Room Air 201/122 09/09/16 03:32 98.7 88 18 220/123 100 212/120 I/O 09/08/16 09/08/16 09/08/16 09/09/16 09/09/16 09/09/16 07:00 15:00 23:00 07:00 15:00 23:00 Intake Total 960 ml Balance 960 ml Intake Oral 960 ml # Voids 4 Result Diagram: 09/09/16 0440 09/09/16 0440 Other Results Laboratory Tests Test 09/09/16 04:40 Estimat Glomerular Filtration 82 ML/MIN Rate Objective Remarks O. CONSTITUTIONAL/GEN: normally nourished, in NAD. EYES: conjunctiva normal, PERRLA, EOMI. NECK: Supple LUNGS: clear A-P, respiratory effort is normal. CARDIOVASCULAR: RR without murmur or gallop. No significant edema. GI/ABD: soft without masses, without organomegaly. : no CVA tenderness NEURO: No focal deficits. SKIN: color normal, no rashes noted. HEME/LYMPH: no bruising, petechia or significant adenopathy MUSC: back is normal in appearance. Extremities are normal in appearance. PSYCH/MENTAL STATUS: Alert and oriented x 3. A/P Assessment and Plan Mr. Pineda is a pleasant 51 y/o black male with a PMHx significant for anemia and essential hypertension, presenting to [facility] ED. He will be admitted for blood pressure stabilization and monitoring of vitals / end organ damage. Attending Attestation Patient seen and examined. Case reviewed and discussed with the resident team. Agree with plan of care as discussed with me and documented in the resident note. Problem List: (1) Uncontrolled hypertension Status: Acute Plan: Given 10 mg IV push of hydralazine x 2 in ED. BP reduced from 220/123 to 171/98. Troponin < 0.02. BUN/CR = 14 / 1.13 Alert and oriented. No focal neurologic findings suggestive of POULTRY SEXER encephalopathy or damage. Head CT on 09/06 showed no acute disease. TSH on 09/06 was also WNL at 0.703. Continue with Amlodipine 5 mg daily. Monitor Vitals q 4 hours. Obtain EKG and CMP. Start Metoprolol 50 mg by mouth twice a day. Clonidine 0.1 mg every 6 hours when necessary systolic greater than 190. Goal systolic 180 mm Hg (20-25% of 220). (2) Nutrition, metabolism, and development symptoms Status: Acute Plan: Fluids: By mouth DVT ppx: SCDs GI ppx: Not indicated Electrolytes: At goal Admit to observation for BP stabilization. [facility] Team Ada Romero MD Sep 09, 2016 15:48
[2016-09-09] MEDS: oxyCODONE/ACETAMINOPHEN 5 MG/325 MG TAB PO PRN ×2 (17:19→23:35)
[2016-09-09] MEDS: HYDROCHLOROTHIAZIDE 12.5 MG CAP PO SCH (18:15)
[2016-09-09] MEDS ORDERED: ATORVASTATIN 40 MG TAB PO SCH (21:00)
--- NOTE | 2016-09-09 21:59 | EKG ---
Date Performed: 09/09/2016 Time Performed: 04:47:13 PTAGE: 51 years EKG: Sinus rhythm POSSIBLE LEFT ATRIAL ENLARGEMENT POSSIBLE LEFT VENTRICULAR HYPERTROPHY NONSPECIFIC T-WAVE ABNORMALIT Y Since previous tracing, no significant change noted ABNORMAL ECG PREVIOUS TRACING : 09/06/2016 20.58 DOCTOR: Sonia Mitchell Interpretating Date/Time 09/09/2016 21:56:43
[2016-09-10 00:28] VITALS: BP 167/103; PULSE 65; RESP 18; TEMP 97.5; O2SAT 99
[2016-09-10 00:31] VITALS: BP 150/100
[2016-09-10 04:41] LABS: AUTOMATED NEUTROPHIL # 4.7 TH/MM3 (1.8-7.7); BASOPHIL # 0.1 TH/MM3 (0-0.2); BASOPHIL % 0.6 % (0.0-2.0); EOSINOPHIL # 0.3 TH/MM3 (0-0.4); EOSINOPHIL % 3.8 % (0.0-4.0); HEMATOCRIT 42.8 % (39.0-51.0); HEMO FLAGS DIFF FINAL; LYMPH % 32.2 % (9.0-44.0); LYMPHOCYTE # 2.7 TH/MM3 (1.0-4.8); MEAN CELL VOLUME 85.2 FL (80.0-100.0); MEAN CORPUSCULAR HEMOGLOBIN 28.7 PG (27.0-34.0); MEAN CORPUSCULAR HGB CONC 33.7 % (32.0-36.0); MONO % 7.4 % (0.0-8.0); PLATELET COUNT 168 TH/MM3 (150-450); RED BLOOD COUNT 5.03 MIL/MM3 (4.50-5.90); RED CELL DISTRIBUTION WIDTH 12.8 % (11.6-17.2); WHITE BLOOD COUNT 8.4 TH/MM3 (4.0-11.0)
[2016-09-10 04:48] VITALS: BP 140/110; PULSE 63; RESP 18; TEMP 97.2; O2SAT 100
[2016-09-10 04:54] LABS: BICARBONATE 27.1 MEQ/L (21.0-32.0); MAGNESIUM 2.3 MG/DL (1.5-2.5); POTASSIUM 3.7 MEQ/L (3.5-5.1)
[2016-09-10 08:08] VITALS: BP 151/96; PULSE 76; RESP 18; O2SAT 100
[2016-09-10 08:18] VITALS: TEMP 98.6
[2016-09-10] MEDS ORDERED: METO-309 PO (08:19)
[2016-09-10] MEDS ORDERED: HYDR12.57 PO (08:19)
--- NOTE | 2016-09-10 08:20 | HHI.DCPOC ---
Discharge Care Plan Diagnosis: (1) Uncontrolled hypertension (2) Hypertensive urgency Goals to Promote Your Health * To prevent worsening of your condition and complications * To maintain your health at the optimal level Directions to Meet Your Goals Take your medications as prescribed Follow your dietary instruction Follow activity as directed Keep your appointments as scheduled Take your immunizations and boosters as scheduled If your symptoms worsen call your PCP, if no PCP go to Urgent Care Center or Emergency Room Smoking is Dangerous to Your Health. Avoid second hand smoke Call the 24-hour hour crisis hotline for domestic abuse at Yfn Whitlock MD R2 Sep 10, 2016 08:20
[2016-09-10] MEDS ORDERED: amLODIPine BESYLATE 5 MG TAB PO SCH (09:00)
[2016-09-10] MEDS ORDERED: ASPIRIN 81 MG CHEW TAB CHEW SCH (09:00)
[2016-09-10] MEDS ORDERED: MULTIVITAMIN TAB PO SCH (09:00)
[2016-09-10] MEDS: HYDROCHLOROTHIAZIDE 12.5 MG CAP PO SCH (09:20)
[2016-09-10] MEDS: METOPROLOL TARTRATE 50 MG TAB PO SCH (09:20)
[2016-09-10] MEDS ORDERED: PNEUMOCOCCAL POLYVALENT INJ 25 MCG/0.5 ML SYR IM ONE (10:00)
--- NOTE | 2016-09-10 10:05 | HHI.FPPN ---
Subjective Remarks No events overnight. Headaches have resolved. No lightheadedness when standing. Blood pressures are improved from admission and ranging from 140's-160's/90's- 100's. This is improved from 200's/120's at admission. No chest pain or shortness of breath. Eating well. No abdominal pain, nausea, vomiting, diarrhea. No calf tenderness. (Yfn Whitlock MD R2) Objective Vitals Vital Signs Date Time Temp Pulse Resp B/P Pulse Ox O2 Delivery O2 Flow Rate FiO2 09/10/16 08:18 98.6 09/10/16 08:08 76 18 151/96 100 09/10/16 04:48 97.2 63 18 140/110 100 09/10/16 00:35 18 09/10/16 00:31 150/100 09/10/16 00:28 97.5 65 18 167/103 99 09/09/16 21:00 158/98 09/09/16 19:32 98.7 79 18 184/105 99 09/09/16 19:32 162/106 09/09/16 16:03 97.9 93 18 157/99 100 I/O 09/09/16 09/09/16 09/09/16 09/10/16 09/10/16 09/10/16 07:00 15:00 23:00 07:00 15:00 23:00 Intake Total 960 ml Balance 960 ml Intake Oral 960 ml # Voids 4 (Yfn Whitlock MD R2) Result Diagram: 09/10/16 0346 09/10/16 0346 Objective Remarks O. CONSTITUTIONAL/GEN: normally nourished, in NAD. EYES: conjunctiva normal, PERRLA, EOMI. NECK: Supple LUNGS: clear A-P, respiratory effort is normal. CARDIOVASCULAR: RR without murmur or gallop. No significant edema. GI/ABD: soft without masses, without organomegaly. : no CVA tenderness NEURO: No focal deficits. SKIN: color normal, no rashes noted. HEME/LYMPH: no bruising, petechiae or significant adenopathy MUSC: back is normal in appearance. Extremities are normal in appearance. PSYCH/MENTAL STATUS: Alert and oriented x 3. (Yfn Whitlock MD R2) A/P Assessment and Plan 51 y/o black male with a PMHx significant for anemia and essential hypertension , presenting to [place] ED. He was admitted for hypertensive urgency. (Yfn Whitlock MD R2) Attending Attestation Patient seen and examined. Case reviewed and discussed with the resident team. Agree with plan of care as discussed with me and documented in the resident note. (Ada Willett MD) Problem List: (1) Uncontrolled hypertension Status: Acute Plan: Blood pressures improved significantly since admission. Blood pressure medicine will need to be titrated in the outpatient setting. - Continue Metoprolol 50 mg twice daily - Continue amlodipine 5 mg daily - Continue HCTZ 12.5 daily - All medications are low [facility] at [facility] - Follow up outpatient for titration of medications - BMP in 3 to 5 days to check electrolytes while on diuretic - Instructions on stopping HCTZ if feeling lightheaded on medication (2) Nutrition, metabolism, and development symptoms Status: Acute Plan: Fluids: By mouth DVT ppx: SCDs Electrolytes: At goal DW Dr. piper Domingo (Yfn Whitlock MD R2) Yfn Whitlock MD R2 Sep 10, 2016 10:05 Ada Willett MD Sep 10, 2016 12:07
[2016-09-10 10:23] VITALS: PULSE 75
[2016-09-11] MEDS ORDERED: ACET500T13 PO (16:12)
== END 2016-09-10 14:22 | disposition home or self-care (01) ==
LOC: NEPE 03:29 → NEDA 06:22 → NEPFCDU 09:42
PROVIDERS: ADMIT Family Medicine; ATTEND Family Medicine
DX: I16.0 Hypertensive urgency (principal); D64.9 Anemia, unspecified; Z79.82 Long term (current) use of aspirin; Z91.041 Radiographic dye allergy status
CPT/HCPCS: 80048; 82550; 82552; 83735; 84100; 84484; 85025; 93005; 96374; 96376; 99285; G0378; J0360

== ENCOUNTER 2016-09-11 03:28 | Observation (INO) | payer SELFPAY ==
[~2016-09-11] VITALS: Ht 185.4 cm; Wt 95.0 kg
[2016-09-11] VITALS (11 sets, daily range): BP systolic 140–182; BP diastolic 89–105; PULSE 68–86; RESP 14–21; TEMP 98–98.8; O2SAT 98–100
[~2016-09-11 03:28] MED LIST changes: +METO-309 PO
--- NOTE | 2016-09-11 03:53 | PD ---
HPI Chief Complaint: Hypertension Time Seen by Provider: 03:46 Travel History International Travel<30 days: No Contact w/Intl Traveler<30days: No Traveled to known affect area: No History of Present Illness HPI This is a 51-year-old male who presents here today with complaints of high blood pressure with pounding headache. The patient reports that he was just discharged from the hospital yesterday for an admission for elevated blood pressure. He states that he woke up this morning about 3 AM with a pounding sensation in his head. He states took his blood pressure and found to be elevated. When he arrived here, his blood pressure was elevated with a systolic over 100. He reports taking all of his medications as prescribed. He denies any chest pressure, chest pain. He denies any shortness of breath. PFSH Past Medical History Blood Disorders: No Anxiety: No Depression: No Heart Rhythm Problems: No Cancer: No Cardiovascular Problems: Yes (hypertension) High Cholesterol: Yes Chest Pain: No Congestive Heart Failure: No Cerebrovascular Accident: No Diminished Hearing: No Endocrine: No Genitourinary: No Hypertension: Yes Immune Disorder: No Musculoskeletal: No Neurologic: No Psychiatric: No Reproductive: No Migraines: Yes Tetanus Vaccination: Unknown Influenza Vaccination: No Past Surgical History Surgical History: No Previous Surgery Social History Alcohol Use: No Tobacco Use: No Substance Use: No Allergies-Medications (Allergen,Severity, Reaction): Coded Allergies: Contrast Media (Verified Allergy, Intermediate, 09/11/16) swelling Reported Meds & Prescriptions Reported Meds & Active Scripts Active Lopressor (Metoprolol Tartrate) 50 Mg Tab 50 Mg PO Q12HR Aspirin 81 Mg Chew 81 Mg CHEW DAILY Atorvastatin (Atorvastatin Calcium) 40 Mg Tab 40 Mg PO HS Amlodipine (Amlodipine Besylate) 5 Mg Tab 5 Mg PO DAILY Reported Multiple Vitamin 1 Tab 1 Tab PO DAILY Review of Systems Except as stated in HPI: all other systems reviewed are Neg General / Constitutional: No: Fever, Chills Eyes: No: Diploplia, Blurred Vision HENT: Positive: Headaches, No: Neck Pain (robbing) Cardiovascular: No: Chest Pain or Discomfort, Palpitations Respiratory: No: Cough Gastrointestinal: No: Nausea, Vomiting, Abdominal Pain Musculoskeletal: No: Weakness, Pain Neurologic: Positive: Headache, No: Weakness, Dizziness, Ataxia, Change in Mentation, Sensory Disturbance Physical Exam Narrative GENERAL: Well-nourished, well-developed patient. SKIN: Focused skin assessment warm/dry. HEAD: Normocephalic/atraumatic. EYES: No scleral icterus. No injection or drainage. NECK: Supple, trachea midline. CARDIOVASCULAR: Regular rate and rhythm without murmurs, gallops, or rubs. RESPIRATORY: Breath sounds equal bilaterally. No accessory muscle use. GASTROINTESTINAL: Abdomen soft, non-tender, nondistended. MUSCULOSKELETAL: No cyanosis, or edema. NEUROLOGICAL: Awake and alert. Cranial nerves II through XII intact. Motor and sensory grossly within normal limits. Five out of 5 muscle strength in all muscle groups. Normal speech. Data Data Last Documented VS Vital Signs Date Time Temp Pulse Resp B/P Pulse Ox O2 Delivery O2 Flow Rate FiO2 09/11/16 05:00 77 16 152/94 98 Room Air 09/11/16 03:30 98.4 Orders Basic Metabolic Panel (Bmp) (09/11/16 03:48) Iv Access Insert/Monitor (09/11/16 03:48) Ecg Monitoring (09/11/16 03:48) Oximetry (09/11/16 03:48) Hydralazine Inj (Apresoline Inj) (09/11/16 04:00) Labs Laboratory Tests Test 09/11/16 03:50 Sodium Level 137 MEQ/L Potassium Level 3.7 MEQ/L Chloride Level 100 MEQ/L Carbon Dioxide Level 29.1 MEQ/L Anion Gap 8 MEQ/L Blood Urea Nitrogen 17 MG/DL Creatinine 1.11 MG/DL Estimat Glomerular Filtration 84 ML/MIN Rate Random Glucose 101 MG/DL Calcium Level 9.4 MG/DL MDM Medical Decision Making Medical Screen Exam Complete: Yes Emergency Medical Condition: Yes Differential Diagnosis Hypertensive urgency versus emergency versus medication noncompliance Narrative Course 51-year-old male who was discharged 2 days ago from the [facility] service, who presents today with complaints of continued blood pressure with pounding headache. The patient has been taking his medications as prescribed. He's been given hydralazine here IVP. His blood pressure has come down. The patient has no primary care physician and is visiting here from [place]. He intends to be here for at least 3 more months. Given this, I feel he should be brought in under observation to make sure that his blood pressure stabilizes. In evaluation of his vital signs when he was admitted, he still had elevated diastolic blood pressures. Case was discussed with Dr. Whitlock, senior resident on-call. The patient be minute to Dr. Willett under observation. Diagnosis Primary Impression: Hypertensive urgency Admitting Information Admitting Physician Requests: Observation Baltazar Moulton MD Sep 11, 2016 03:53
[2016-09-11] MEDS ORDERED: hydrALAZINE HCL 20 MG/ML VIAL IV PUSH ONE (04:00)
[2016-09-11 04:33] LABS: BICARBONATE 29.1 MEQ/L (21.0-32.0); POTASSIUM 3.7 MEQ/L (3.5-5.1)
--- NOTE | 2016-09-11 05:28 | HHI.HP ---
[facility] Service Family Medicine Primary Care Physician No Primary Care Physician Admission Diagnosis Diagnoses: International Travel<30 Days: No Contact w/Intl Traveler<30days: No Known Affected Area: No History of Present Illness 51 year old male admitted recently for hypertensive urgency and was sent home with amlodipine 5 mg daily and metoprolol 50 mg bid. He reports that he woke up this morning with a pounding headache. He rates it a 9/10. The pounding gave way to a tension-type headache after getting Hydralazine in the ED. His headache is now improved. He reported to the ED with a blood pressure of 182/ 101. He was given 10 mg IV hydralazine. BP responded and is now 154/89. He is a difficult social situation with difficult outpatient follow up. Patient is being admitted for observation, better control of blood pressure, monitoring for signs of end organ damage, and arrangement of better outpatient follow up. He had headache, but no blurry vision, double vision, chest pain, shortness of breath, abdominal pain, calf swelling, frequent urination, lightheadedness, or abnormal balance. (Yfn Whitlock MD R2) Review of Systems Constitutional: DENIES: Diaphoretic episodes, Chills, Dizziness Endocrine: DENIES: Polydipsia, Polyuria Eyes: DENIES: Blurred vision, Diplopia, Vision loss, Photosensitivity, Double Vision Ears, nose, mouth, throat: DENIES: Throat pain, Running Nose Respiratory: DENIES: Cough, Wheezing, Sputum production, Shortness of breath Cardiovascular: DENIES: Chest pain, Palpitations, Dyspnea on Exertion, Lower Extremity Edema Gastrointestinal: DENIES: Abdominal pain, Constipation, Diarrhea, Nausea, Vomiting Genitourinary: DENIES: Urgency, Dysuria Musculoskeletal: DENIES: Joint pain, Back pain, Neck pain Hematologic/lymphatic: DENIES: Bruising Neurologic: COMPLAINS OF: Headache, DENIES: Abnormal gait, Localized weakness , Paresthesias, Seizures, Speech Problems, Tremor, Poor Balance Psychiatric: DENIES: Anxiety, Confusion, Depression (Yfn Whitlock MD R2) Past Family Social History Past Medical History Past Medical History Anemia - currently on iron replacement HTN Past Surgical History Denies any PSHx Reported Medications [employer]genics - testosterone supplementation Iron supplements Allergies: Coded Allergies: Contrast Media (Verified Allergy, Intermediate, 09/06/16) swelling Family History Father - from "high blood pressure" Mother - from unknown cause, DM Multiple brothers and sister, no medical problems reported including sudden cardiac , VT, ACS. Social History Visiting friends from [place] for the past 3 months. Works in [employer] back home in [place]. Smoke - Denies Alcohol - Drinks wine occasionally, with last drink over 2 months ago Illicit - Denies any illicit drug use Allergies: Coded Allergies: Contrast Media (Verified Allergy, Intermediate, 09/09/16) swelling Reported Medications Reported Meds & Active Scripts Active Lopressor (Metoprolol Tartrate) 50 Mg Tab 50 Mg PO Q12HR Aspirin 81 Mg Chew 81 Mg CHEW DAILY Atorvastatin (Atorvastatin Calcium) 40 Mg Tab 40 Mg PO HS Amlodipine (Amlodipine Besylate) 5 Mg Tab 5 Mg PO DAILY Reported Multiple Vitamin 1 Tab 1 Tab PO DAILY (Yfn Whitlock MD R2) Allergies: Coded Allergies: Contrast Media (Verified Allergy, Intermediate, 09/11/16) swelling Physical Exam Vital Signs Vital Signs Date Time Temp Pulse Resp B/P Pulse Ox O2 Delivery O2 Flow Rate FiO2 09/11/16 05:00 77 16 152/94 98 Room Air 09/11/16 04:30 77 16 154/89 98 Room Air 09/11/16 04:13 81 16 151/91 99 Room Air 09/11/16 03:45 76 16 169/105 100 09/11/16 03:30 98.4 77 16 182/101 98 Room Air Physical Exam GENERAL: Resting in bed, appears comfortable SKIN: No rashes, ecchymoses or lesions. HEAD: Atraumatic. Normocephalic. No temporal or scalp tenderness. EYES: Pupils equal round and reactive. Extraocular motions intact. No scleral icterus. No injection or drainage. No retinal hemorrhages. ENT: Nose without bleeding, purulent drainage or septal hematoma. Throat without erythema, tonsillar hypertrophy or exudate. Uvula midline. Airway patent. NECK: Trachea midline. No JVD or lymphadenopathy. Thyroid normal. Supple, nontender, no meningeal signs. CARDIOVASCULAR: Regular rate and rhythm without murmurs, gallops, or rubs. RESPIRATORY: Clear to auscultation. Breath sounds equal bilaterally. No wheezes , rales, or rhonchi. GASTROINTESTINAL: Abdomen soft, non-tender, nondistended. No hepato-splenomegaly , or palpable masses. No guarding. MUSCULOSKELETAL: Extremities without clubbing, cyanosis, or edema. No joint tenderness, effusion, or edema noted. No calf tenderness. Negative Homans sign bilaterally. NEUROLOGICAL: Awake and alert. Cranial nerves II through XII intact. Motor and sensory grossly within normal limits. EOMI, PERRLA. Five out of 5 muscle strength in all muscle groups. Normal speech. Laboratory Laboratory Tests Test 09/11/16 03:50 Sodium Level 137 Potassium Level 3.7 Chloride Level 100 Carbon Dioxide Level 29.1 Anion Gap 8 Blood Urea Nitrogen 17 Creatinine 1.11 Estimat Glomerular Filtration 84 Rate Random Glucose 101 Calcium Level 9.4 (Yfn Whitlock MD R2) Result Diagram: 09/11/16 0350 Septic Shock Reassessment Heart: Regular rate and rhythm Lungs: Clear Skin: Warm Capillary Refill: <2 seconds (Yfn Whitlock MD R2) Assessment and Plan Assessment and Plan 51 year old male recently admitted for hypertensive urgency is returning with elevated blood pressures and pounding headache. Code Status FULL CODE Discussed Condition With Discussed with Dr. Moulton (Yfn Whitlock MD R2) Attending Attestation Patient seen and examined. Case reviewed and discussed with the resident team. Agree with plan of care as discussed with me and documented in the resident note. (Ada Willett MD) Problem List: (1) Uncontrolled hypertension Status: Acute Plan: Elevated blood pressures with pounding headache. No focal neurological deficit. No signs of end organ damage. 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 TSH done on 09/06 was normal. - Given Hydralazine IV once in ED with improvement in BP - Continue Amlodipine 5 mg daily - Continue Lopressor 50 mg bid - Titrate medications up for effect. - Monitor for neurological deficits, signs of end organ damage - Check metanephrines (resistant hypertension with pounding headaches, somewhat labile, also with some tachycardia on initial admission) - Renin/aldosterone ratio now. (2) Nutrition, metabolism, and development symptoms Status: Acute Plan: Fluids: PO Electrolytes: Normal Nutrition: Heart healthy (3) No contraindication to deep vein thrombosis (DVT) prophylaxis Status: Acute Plan: Bilateral SCD's (Yfn Whitlokc MD R2) Yfn Whitlock MD R2 Sep 11, 2016 05:27 Ada Willett MD Sep 11, 2016 13:25
[2016-09-11] MEDS ORDERED: ENALAPRILAT 1.25 MG/ML VIAL IV PRN (05:30)
[2016-09-11] MEDS ORDERED: SODIUM CHLORIDE 0.9% FLUSH 10 ML FLUSH IV FLUSH PRN (05:30)
[2016-09-11] MEDS ORDERED: IBUPROFEN 800 MG TAB PO PRN (06:00)
[2016-09-11] MEDS: MULTIVITAMIN TAB PO SCH (07:44)
[2016-09-11] MEDS: METOPROLOL TARTRATE 50 MG TAB PO SCH ×2 (07:44→17:53)
[2016-09-11] MEDS: ASPIRIN 81 MG CHEW TAB CHEW SCH (07:44)
[2016-09-11] MEDS ORDERED: amLODIPine BESYLATE 5 MG TAB PO SCH (09:00)
[2016-09-11] MEDS: SODIUM CHLORIDE 0.9% FLUSH 10 ML FLUSH IV FLUSH SCH ×2 (09:00→21:27)
[2016-09-11] MEDS ORDERED: ACETAMINOPHEN 500 MG CPLT PO PRN (13:15)
--- NOTE | 2016-09-11 13:24 | HHI.FPPN ---
Subjective Remarks Patient seen, examined and discussed with the medicine team. This is a 51 year-old -[place] male presented for the third time with pounding headache and elevated blood pressure at home. He was sent home yesterday with metoprolol and amlodipine which he reports that he did take. He woke up this morning early and had a headache, took his blood pressure and thought that it was elevated in the 200s so he came again to the emergency department. He would like to find a local provider but he's not assistance and so he will need to pay shields and he will not be able to receive assistance financially. This morning, he feels much improved, the central headache is resolved. Objective Vitals Vital Signs Date Time Temp Pulse Resp B/P Pulse Ox O2 Delivery O2 Flow Rate FiO2 09/11/16 12:07 98.8 86 18 159/92 98 09/11/16 08:45 68 140/92 09/11/16 07:19 98.0 81 14 169/94 99 09/11/16 05:00 77 16 152/94 98 Room Air 09/11/16 04:30 77 16 154/89 98 Room Air 09/11/16 04:13 81 16 151/91 99 Room Air 09/11/16 03:45 76 16 169/105 100 09/11/16 03:30 98.4 77 16 182/101 98 Room Air I/O 09/10/16 09/10/16 09/10/16 09/11/16 09/11/16 09/11/16 07:00 15:00 23:00 07:00 15:00 23:00 Output Total 900 ml Balance -900 ml Output Urine Total 900 ml Result Diagram: 09/11/16 0350 Objective Remarks O. CONSTITUTIONAL/GEN: normally nourished, in NAD. EYES: conjunctiva normal, PERRLA, EOMI. sclerae are muddy NECK: thyroid midline, carotids symmetrical. LUNGS: clear A-P, respiratory effort is normal. CARDIOVASCULAR: RR without murmur or gallop. No significant edema. GI/ABD: soft without masses, without organomegaly. NEURO: No focal deficits. SKIN: color normal, no rashes noted. HEME/LYMPH: no bruising, petechia or significant adenopathy MUSC: back is normal in appearance. Extremities are normal in appearance. PSYCH/MENTAL STATUS: Alert and oriented x 3. A/P Assessment and Plan 51 year old male recently admitted for hypertensive urgency is returning with elevated blood pressures and pounding headache, since resolved. Discharge Planning We will observe him throughout the day today, monitoring his blood pressure and making certain he gets his medication. I did explain to him that it may take a few days for him to get a good blood level of his medication to assist with his blood pressure. Recommended that when he has a headache he take Tylenol and he can seek follow-up as an outpatient at a local urgent care clinic. Attending Attestation Patient seen and examined. Case reviewed and discussed with the resident team. Agree with plan of care as discussed with me and documented in the resident note. Problem List: (1) Uncontrolled hypertension Status: Acute Plan: Elevated blood pressures with pounding headache. No focal neurological deficit. No signs of end organ damage. Head CT done on 09/06 showing no [employer] OPERATOR damage. TSH done on 09/06 was normal. - Given Hydralazine IV once in ED with improvement in BP - Continue Amlodipine 5 mg daily - Continue Lopressor 50 mg bid - Titrate medications up for effect. - Monitor for neurological deficits, signs of end organ damage - Check metanephrines (resistant hypertension with pounding headaches, somewhat labile, also with some tachycardia on initial admission) - Renin/aldosterone ratio now. (2) Nutrition, metabolism, and development symptoms Status: Acute Plan: Fluids: PO Electrolytes: Normal Nutrition: Heart healthy (3) No contraindication to deep vein thrombosis (DVT) prophylaxis Status: Acute Plan: Bilateral SCD's Ada Willett MD Sep 11, 2016 13:24
[2016-09-11] MEDS ORDERED: ACET500T13 PO (16:12)
--- NOTE | 2016-09-11 16:15 | HHI.DCPOC ---
Discharge Care Plan Diagnosis: (1) Uncontrolled hypertension Goals to Promote Your Health * To prevent worsening of your condition and complications * To maintain your health at the optimal level Directions to Meet Your Goals Take your medications as prescribed Follow your dietary instruction Follow activity as directed Keep your appointments as scheduled Take your immunizations and boosters as scheduled If your symptoms worsen call your PCP, if no PCP go to Urgent Care Center or Emergency Room Smoking is Dangerous to Your Health. Avoid second hand smoke Call the 24-hour hour crisis hotline for domestic abuse at [place] MD R1 Sep 11, 2016 16:15
[2016-09-11] MEDS ORDERED: ATORVASTATIN 40 MG TAB PO SCH (21:00)
[2016-09-12 00:07] VITALS: BP 145/90; PULSE 68; RESP 18; TEMP 98.4; O2SAT 99
[2016-09-12 04:17] VITALS: BP 173/99; PULSE 73; RESP 18; TEMP 98.4; O2SAT 100
[2016-09-12 04:18] VITALS: BP 168/95; PULSE 77; RESP 18; TEMP 98.3; O2SAT 97
[2016-09-12 07:57] VITALS: BP 157/95; PULSE 74; RESP 18; TEMP 98.2; O2SAT 100
[2016-09-12] MEDS: MULTIVITAMIN TAB PO SCH (08:51)
[2016-09-12] MEDS ORDERED: AMLO10 PO (08:51)
[2016-09-12] MEDS: METOPROLOL TARTRATE 50 MG TAB PO SCH (08:51)
[2016-09-12] MEDS: SODIUM CHLORIDE 0.9% FLUSH 10 ML FLUSH IV FLUSH SCH (08:52)
[2016-09-12] MEDS: ASPIRIN 81 MG CHEW TAB CHEW SCH (08:52)
[2016-09-12 11:20] VITALS: BP 155/89; PULSE 69; RESP 18; TEMP 97.9; O2SAT 99
--- NOTE | 2016-09-12 11:22 | HHI.FPPN ---
Subjective Remarks No acute events. Headaches are resolved. He had good response to Tylenol. Blood pressures ranging in the 150's-160's/90's range. BP's improved from admission. Increased amlodipine from 5 mg to 10 mg this morning. No chest pain or shortness of breath. No abdominal pain, nausea, or vomiting. (Yfn Whitlock MD R2) Objective Vitals Vital Signs Date Time Temp Pulse Resp B/P Pulse Ox O2 Delivery O2 Flow Rate FiO2 09/12/16 07:57 98.2 74 18 157/95 100 09/12/16 04:18 98.3 77 18 168/95 97 09/12/16 00:07 98.4 68 18 145/90 99 09/11/16 19:38 98.0 77 21 169/102 99 09/11/16 18:22 173/103 09/11/16 15:54 98.0 76 18 142/91 99 09/11/16 12:07 98.8 86 18 159/92 98 I/O 09/11/16 09/11/16 09/11/16 09/12/16 09/12/16 09/12/16 07:00 15:00 23:00 07:00 15:00 23:00 Intake Total 500 ml 200 ml Output Total 1600 ml Balance -1100 ml 200 ml Intake Oral 500 ml 200 ml Output Urine Total 1600 ml # Voids 1 (Yfn Whitlock MD R2) Result Diagram: 09/11/16 0350 Objective Remarks GEN: normally nourished, in NAD. EYES: conjunctiva normal, PERRLA, EOMI. NECK: thyroid midline, carotids symmetrical. LUNGS: clear A-P, respiratory effort is normal. CARDIOVASCULAR: RR without murmur or gallop. No significant edema. GI/ABD: soft without masses, without organomegaly. NEURO: No focal deficits. SKIN: color normal, no rashes noted. HEME/LYMPH: no bruising, petechia or significant adenopathy MUSC: back is normal in appearance. Extremities are normal in appearance. PSYCH/MENTAL STATUS: Alert and oriented x 3. NERUO: No focal deficits, EOMI, PERRLA, normal strength/sensation (Yfn Whitlock MD R2) A/P Assessment and Plan 51 year old male recently admitted for hypertensive urgency is returning with elevated blood pressures and pounding headaches. Discharge Planning We will observe him throughout the day today, monitoring his blood pressure and making certain he gets his medication. I did explain to him that it may take a few days for him to get a good blood level of his medication to assist with his blood pressure. Recommended that when he has a headache he take Tylenol and he can seek follow-up as an outpatient at a local urgent care clinic. (Yfn Whitlock MD R2) Attending Attestation Patient seen and examined. Case reviewed and discussed with the resident team. Agree with plan of care as discussed with me and documented in the resident note. (Ada Willett MD) Problem List: (1) Uncontrolled hypertension Status: Acute Plan: Elevated blood pressures with pounding headache. No focal neurological deficit. No signs of end organ damage. Head CT done on 09/06 showing no [employer] damage. TSH done on 09/06 was normal. - Given Hydralazine IV once in ED with improvement in BP - Increased amlodipine from 5 to 10 mg daily - Continue Lopressor 50 mg bid - Titrate medications up for effect, will need to be done gradually over time. - Monitor for neurological deficits, signs of end organ damage - Check metanephrines (resistant hypertension with pounding headaches, somewhat labile, also with some tachycardia on initial admission) - Renin/aldosterone ratio pending (2) Nutrition, metabolism, and development symptoms Status: Acute Plan: Fluids: PO Electrolytes: Normal Nutrition: Heart healthy (3) No contraindication to deep vein thrombosis (DVT) prophylaxis Status: Acute Plan: Bilateral SCD's (Yfn Whitlock MD R2) Yfn Whitlock MD R2 Sep 12, 2016 11:22 Ada Willett MD Sep 12, 2016 12:07
== END 2016-09-12 14:27 | disposition home or self-care (01) ==
LOC: NEPE 03:28 → NEDA 05:28 → NEPHCDU 06:50
PROVIDERS: ADMIT Family Medicine; ATTEND Family Medicine
DX: I10 Essential (primary) hypertension (principal); R51 Headache; D64.9 Anemia, unspecified; E78.00 Pure hypercholesterolemia, unspecified; Z91.041 Radiographic dye allergy status; Z79.82 Long term (current) use of aspirin
CPT/HCPCS: 80048; 82088; 83835; 84244; 96374; 99285; G0378; J0360

== ENCOUNTER 2016-11-10 00:56 | Emergency (ER) | payer SELFPAY ==
[~2016-11-10] VITALS: Ht 193 cm; Wt 72.0 kg
[~2016-11-10 00:56] MED LIST changes: +ACET500T13 PO; +AMLO10 PO; -AMLO5TAB2 PO
[2016-11-10 00:58] VITALS: BP 162/100; PULSE 72; RESP 16; TEMP 98; O2SAT 100
[2016-11-10 01:23] VITALS: BP 179/110; PULSE 71; RESP 18; O2SAT 100
[2016-11-10] MEDS ORDERED: METO-309 PO (01:39)
[2016-11-10 02:10] VITALS: BP 145/93; PULSE 79; RESP 20; O2SAT 97
--- NOTE | 2016-11-10 02:21 | PD ---
HPI Chief Complaint: Hypertension Time Seen by Provider: 01:15 Travel History International Travel<30 days: No Contact w/Intl Traveler<30days: No Traveled to known affect area: No History of Present Illness HPI The patient is a 51 year old male who presents to the [facility] emergency department with a history of hypertension who reports that he has recently noticed that his blood pressures have been elevated in the evening and clinical allergist when he gets. The patient reports that he has been taking metoprolol 50 mg at 6 AM and then again at 6 PM. He also reports taking amlodipine 10 mg every morning. The patient reports that he has not been taking his cholesterol medication consistently as he reports that it makes him feel like he is developing palpitations. He reports that this has improved since stopping that medication. He cannot recall the name of his primary care physician. He reports that he did follow-up with his primary care physician after being discharged from the hospital related to an admission for hypertension. He reports that he continues to take an aspirin daily. The patient reports that he checked his blood pressure this evening and noted it was elevated after hearing a pounding/heartbeat in his head. The patient reports that his blood pressure was elevated to 187/109 at home. On review of systems, the patient denies having any headache, neck pain, numbness or tingling to his extremities, facial droop, difficulty with word finding ability, dizziness, weakness of his extremities, or vision changes. Additionally, on review of systems the patient denies any recent fevers, cough, congestion, neck pain, chest pain, shortness of breath, abdominal pain, vomiting, diarrhea, or urinary symptoms. He denies any recent dietary indiscretions. [facility], [facility] Past Medical History Narrative Medical The patient's past medical history is significant for hypertension, hyperlipidemia, anemia. Asthma: No Blood Disorders: No Anxiety: No Depression: No Heart Rhythm Problems: No Cancer: No Cardiovascular Problems: Yes High Cholesterol: Yes Chemotherapy: No Chest Pain: No Congestive Heart Failure: No COPD: No Cerebrovascular Accident: No Diabetes: No Diminished Hearing: No Endocrine: No Genitourinary: No Hypertension: Yes Immune Disorder: No Musculoskeletal: No Neurologic: No Psychiatric: No Reproductive: No Respiratory: No Migraines: Yes (HEADACHES) Radiation Therapy: No Sleep Apnea: No Thyroid Disease: No Tetanus Vaccination: Never Vaccinated Influenza Vaccination: No Past Surgical History Narrative Surgical The patient's past surgical history is reportedly none. Surgical History: No Previous Surgery Other Surgery: No Social History Alcohol Use: No Tobacco Use: No Substance Use: No Allergies-Medications (Allergen,Severity, Reaction): Coded Allergies: Contrast Media (Verified Allergy, Intermediate, 09/11/16) swelling Reported Meds & Prescriptions Reported Meds & Active Scripts Active Lopressor (Metoprolol Tartrate) 50 Mg Tab 50 Mg PO DIRECTED Take 1 Tablet in AM, Take 1 and 1/2 tablet in the PM Norvasc (Amlodipine Besylate) 10 Mg Tab 10 Mg PO DAILY APAP Extra Strength (Acetaminophen) 500 Mg Tab 500 Mg PO Q6H PRN Aspirin 81 Mg Chew 81 Mg CHEW DAILY Atorvastatin (Atorvastatin Calcium) 40 Mg Tab 40 Mg PO HS Reported Multiple Vitamin 1 Tab 1 Tab PO DAILY Review of Systems General / Constitutional: No: Fever Eyes: No: Visual changes HENT: No: Headaches, Neck Stiffness, Neck Pain Cardiovascular: No: Chest Pain or Discomfort Respiratory: No: Shortness of Breath Gastrointestinal: No: Abdominal Pain Genitourinary: No: Dysuria Musculoskeletal: No: Pain Skin: No Rash Neurologic: No: Weakness, Focal Abnormalities, Headache, Change in Mentation, Slurred Speech, Sensory Disturbance Psychiatric: No: Depression Endocrine: No: Polydipsia Hematologic/Lymphatic: No: Easy Bruising Physical Exam Narrative General: The patient is a well-developed well-nourished male in no acute distress Head and Neck exam: Head is normocephalic atraumatic. Eyes: EOMI, pupils are equal round and reactive to light. Nose: Midline septum with pink mucous membranes Mouth: Dentition unremarkable. Moist mucus membranes. Posterior oropharynx is not erythematous. No tonsillar hypertrophy. Uvula midline. Airway patent. Neck: No palpable lymphadenopathy. No nuchal rigidity. No thyromegaly. Cardiovascular: Regular rate and rhythm without murmurs, gallops, or rubs. Lungs: Clear to auscultation bilaterally. No wheezes, rhonchi, or rales. Abdomen: Soft, without tenderness to palpation in all 4 quadrants of the abdomen. No guarding, rebound, or rigidity. Normal bowel sounds are audible. No tenderness on palpation of McBurney's point. Negative Joseph sign. Extremities: No clubbing, cyanosis, or edema. 2+ pulses in all 4 extremities. No calf tenderness on palpation. Back: No costovertebral angle tenderness to palpation. Neurologic Exam: Cranial nerves 2-12 were intact on exam. Strength is 5/5 in all 4 extremities. No sensory deficits noted. Skin Exam: No rash noted. Intact skin that is warm and dry. Data Data Last Documented VS Vital Signs Date Time Temp Pulse Resp B/P Pulse Ox O2 Delivery O2 Flow Rate FiO2 11/10/16 01:25 98 Room Air 11/10/16 01:23 71 18 179/110 11/10/16 00:58 98.0 MDM Medical Decision Making Medical Screen Exam Complete: Yes Emergency Medical Condition: Yes Medical Record Reviewed: Yes Differential Diagnosis Medication noncompliance, versus dietary indiscretion, versus hypertension requiring titration up of his existing blood pressure medication dose Narrative Course During the course of the patients emergency department visit, the patients history, examination, and differential diagnosis were reviewed with the patient. The patient was placed on a athletic monitor with oximetry and blood pressure monitoring. The patient is reportedly asymptomatic regarding his blood pressure at this time, denying any headache, neurologic symptoms, chest pain, or shortness of breath. After resting in the bed after coming back from triage the patient's repeat blood pressure is 145/93. The patient reports that his blood pressure is typically elevated in the evening and morning when he first gets up. The patient will have his evening dose of metoprolol titrated up to 1-1/2 tablets in the evening, continued with 1 tablet in the morning. The patient is instructed regarding the importance of close follow-up with his primary care physician. The patient is resting comfortably and feels better, is alert and in no distress. The patients examination findings were discussed with the patient. The repeat examination is unremarkable and benign. The history, exam, diagnostic testing, and current condition do not suggest any significant pathology to warrant further testing, continued ED treatment, admission, or surgical evaluation at this point. The vital signs have been stable. The patient does not have uncontrollable pain, intractable vomiting, or other significant symptoms. The patient's condition is stable and appropriate for discharge. The patient will pursue further outpatient evaluation with a primary care physician or other designated or consulting physician as indicated in the discharge instructions. The patient expressed understanding and was agreeable with this plan. Diagnosis Primary Impression: Hypertension Qualified Code: I10 - Hypertension, unspecified type Referrals: Primary Care Physician 2 days Patient Instructions: General Instructions, Hypertension (ED) Med/Other Pt SpecificInfo: Prescription(s) given Scripts Metoprolol Tartrate (Lopressor)50 Mg Tab50 Mg PO DIRECTED #75 TAB Take 1 Tablet in AM, Take 1 and 1/2 tablet in the PM Prov:Mary Kay Feng MD 11/10/16 Disposition: 01 DISCHARGE HOME Condition: Stable Mary Kay Feng MD Nov 10, 2016 02:21
== END 2016-11-10 03:05 | disposition home or self-care (01) ==
LOC: NEPC 00:56
DX: I10 Essential (primary) hypertension (principal); R00.2 Palpitations; E78.5 Hyperlipidemia, unspecified; D64.9 Anemia, unspecified; E78.00 Pure hypercholesterolemia, unspecified; Z79.82 Long term (current) use of aspirin; Z79.899 Other long term (current) drug therapy
CPT/HCPCS: 99283

== ENCOUNTER 2017-02-22 01:38 | Emergency (ER) | payer SELFPAY ==
[~2017-02-22 01:38] MED LIST changes: +ASPI-516 CHEW; -ASPI81CH CHEW
[2017-02-22] MEDS ORDERED: LORazepam 0.5 MG TAB PO ONE (02:45)
--- NOTE | 2017-02-22 05:22 | PD ---
HPI Chief Complaint: Anxiety Time Seen by Provider: 05:14 Travel History International Travel<30 days: No Contact w/Intl Traveler<30days: No Traveled to known affect area: No History of Present Illness HPI 51-year-old male complains of palpitations while lying in bed. He took Claritin tonight due to seasonal allergies and believes symptoms may be related. He said no shortness of breath or chest pain. No fever or cough. No similar prior episodes. He denies drug or alcohol tobacco. He states his blood pressure was higher tonight at 140/90 despite compliance with metoprolol and norvasc. PFSH Past Medical History Asthma: No Blood Disorders: No Anxiety: No Depression: No Heart Rhythm Problems: No Cancer: No Cardiovascular Problems: Yes High Cholesterol: Yes Chemotherapy: No Chest Pain: No Congestive Heart Failure: No COPD: No Cerebrovascular Accident: No Diabetes: No Diminished Hearing: No Endocrine: No Genitourinary: No Hypertension: Yes Immune Disorder: No Musculoskeletal: No Neurologic: No Psychiatric: No Reproductive: No Respiratory: No Migraines: Yes (HEADACHES) Radiation Therapy: No Sleep Apnea: No Thyroid Disease: No Past Surgical History Surgical History: No Previous Surgery Other Surgery: No Social History Alcohol Use: No Tobacco Use: No Substance Use: No Allergies-Medications (Allergen,Severity, Reaction): Coded Allergies: diatrizoate meglumine (Unverified Allergy, Intermediate, 11/18/16) swelling gadobenic acid (Unverified Allergy, Intermediate, 11/18/16) swelling gadodiamide (Unverified Allergy, Intermediate, 11/18/16) swelling gadoteridol (Unverified Allergy, Intermediate, 11/18/16) swelling iodixanol (Unverified Allergy, Intermediate, 11/18/16) swelling iohexol (Unverified Allergy, Intermediate, 11/18/16) swelling Reported Meds & Prescriptions Reported Meds & Active Scripts Active Lopressor (Metoprolol Tartrate) 50 Mg Tab 50 Mg PO DIRECTED Take 1 Tablet in AM, Take 1 and 1/2 tablet in the PM Norvasc (Amlodipine Besylate) 10 Mg Tab 10 Mg PO DAILY APAP Extra Strength (Acetaminophen) 500 Mg Tab 500 Mg PO Q6H PRN Aspirin 81 Mg Chew 81 Mg CHEW DAILY Atorvastatin (Atorvastatin Calcium) 40 Mg Tab 40 Mg PO HS Reported Multiple Vitamin 1 Tab 1 Tab PO DAILY Review of Systems Except as stated in HPI: all other systems reviewed are Neg Physical Exam Narrative GENERAL: 51-year-old male pleasant well-nourished well-developed SKIN: Warm and dry. HEAD: Atraumatic. Normocephalic. EYES: Pupils equal and round. No scleral icterus. No injection or drainage. ENT: No nasal bleeding or discharge. Mucous membranes pink and moist. NECK: Trachea midline. No JVD. CARDIOVASCULAR: Regular rate and rhythm. RESPIRATORY: No accessory muscle use. Clear to auscultation. Breath sounds equal bilaterally. GASTROINTESTINAL: Abdomen soft, non-tender, nondistended. Hepatic and splenic margins not palpable. MUSCULOSKELETAL: Extremities without clubbing, cyanosis, or edema. No obvious deformities. NEUROLOGICAL: Awake and alert. No obvious cranial nerve deficits. Motor grossly within normal limits. Five out of 5 muscle strength in the arms and legs. Normal speech. PSYCHIATRIC: Appropriate mood and affect; insight and judgment normal. Data Data Last Documented VS Vital signs are normal Orders Orders Lorazepam (Ativan) (02/22/17 02:45) Ed Discharge Order (02/22/17 05:22) [facility] Medical Decision Making Medical Screen Exam Complete: Yes Emergency Medical Condition: Yes Medical Record Reviewed: Yes Differential Diagnosis Anxiety, noncompliance with meds, palpitations, insomnia Narrative Course Patient's EKG shows a sinus rhythm with normal axis and no preexcitation. Patient reports in summary insomnia after taking Claritin some evening palpitations. His exam and history are benign. EKG is unremarkable. He safe for discharge home. We'll give him 0.5 mg Ativan to assist with the insomnia follow-up with primary care early next week advised the patient verbalized understanding of vertigo. Diagnosis Primary Impression: Hypertension Qualified Codes: I10 - Essential (primary) hypertension Additional Impression: Insomnia Qualified Codes: G47.00 - Insomnia, unspecified Referrals: Primary Care Physician 2 days Disposition: DISCHARGE HOME Condition: Stable Brian Duogn MD Feb 22, 2017 05:22
--- NOTE | 2017-02-22 12:46 | EKG ---
Date Performed: 02/22/2017 Time Performed: 02:38:12 PTAGE: 51 years EKG: Sinus rhythm WITH FIRST DEGREE AV BLOCK VOLTAGE CRITERIA FOR LVH Compared to prior tracing no significant change ABNORMAL ECG PREVIOUS TRACING : 02/12/2017 19.58 DOCTOR: Roge Pacheco Interpretating Date/Time 02/22/2017 12:45:18
== END 2017-02-22 02:57 | disposition home or self-care (01) ==
LOC: NEPE 01:38
DX: I10 Essential (primary) hypertension (principal); I44.0 Atrioventricular block, first degree; R94.31 Abnormal electrocardiogram [ECG] [EKG]; G47.00 Insomnia, unspecified; E78.00 Pure hypercholesterolemia, unspecified; Z79.82 Long term (current) use of aspirin; Z79.899 Other long term (current) drug therapy
CPT/HCPCS: 93005; 99283

== ENCOUNTER 2017-09-05 22:03 | Emergency (ER) | payer SELFPAY ==
[2017-09-05 22:34] VITALS: BP 148/99; PULSE 68; RESP 18; TEMP 98.5
[2017-09-06 00:55] VITALS: BP 160/97; PULSE 68; RESP 17; O2SAT 100
[2017-09-06] MEDS ORDERED: SODIUM CHLORIDE 0.9% FLUSH 10 ML FLUSH IVF PRN (02:00)
[2017-09-06 02:10] VITALS: BP 149/92; PULSE 70; RESP 20; O2SAT 100
--- NOTE | 2017-09-06 02:10 | PD ---
HPI Chief Complaint: Hypertension Time Seen by Provider: 01:54 Travel History International Travel<30 days: No Contact w/Intl Traveler<30days: No Traveled to known affect area: No History of Present Illness HPI 52-year-old male presents to the emergency department with complaint of palpitations that awakened him from sleep felt like his heart was racing checked his blood pressure and it was elevated. Patient has been taking Benadryl at bedtime and is noted elevated blood pressure since taking the Benadryl. Patient started on Benadryl and Claritin for allergic rhinitis and environmental allergies. Patient denies chest pain sweats shortness of breath nausea vomiting also denies any headache altered mental status of her lower extremity numbness tingling or weakness or ataxia gait. Patient is no pain at this time and denies any palpitations at this time he decided to recheck because awakened from sleep with palpitations. PFSH Past Medical History Narrative Medical Dyslipidemia hypertension allergic rhinitis migraine; no surgery; no tobacco use alcohol use substance use; nursing notes reviewed Asthma: No Blood Disorders: No Anxiety: No Depression: No Heart Rhythm Problems: No Cancer: No Cardiovascular Problems: Yes High Cholesterol: Yes Chemotherapy: No Chest Pain: No Congestive Heart Failure: No COPD: No Cerebrovascular Accident: No Diabetes: No Diminished Hearing: No Endocrine: No Genitourinary: No Hypertension: Yes Immune Disorder: No Musculoskeletal: No Neurologic: No Psychiatric: No Reproductive: No Respiratory: No Migraines: Yes (HEADACHES) Radiation Therapy: No Sleep Apnea: No Thyroid Disease: No Tetanus Vaccination: Unknown Influenza Vaccination: No Past Surgical History Surgical History: No Previous Surgery Other Surgery: No Social History Alcohol Use: No Tobacco Use: No Substance Use: No Allergies-Medications (Allergen,Severity, Reaction): Coded Allergies: diatrizoate meglumine (Unverified Allergy, Intermediate, 09/05/17) swelling gadobenic acid (Unverified Allergy, Intermediate, 09/05/17) swelling gadodiamide (Unverified Allergy, Intermediate, 09/05/17) swelling gadoteridol (Unverified Allergy, Intermediate, 09/05/17) swelling iodixanol (Unverified Allergy, Intermediate, 09/05/17) swelling iohexol (Unverified Allergy, Intermediate, 09/05/17) swelling Reported Meds & Prescriptions Reported Meds & Active Scripts Active Lopressor (Metoprolol Tartrate) 50 Mg Tab 50 Mg PO DIRECTED Take 1 Tablet in AM, Take 1 and 1/2 tablet in the PM Norvasc (Amlodipine Besylate) 10 Mg Tab 10 Mg PO DAILY Aspirin 81 Mg Chew 81 Mg CHEW DAILY Reported Multiple Vitamin 1 Tab 1 Tab PO DAILY Review of Systems Except as stated in HPI: all other systems reviewed are Neg Physical Exam Narrative GENERAL: Well-developed nourished male no acute distress no respiratory distress ; GCS 15 SKIN: Warm and dry. HEAD: Normocephalic. EYES: No scleral icterus. No injection or drainage. NECK: Supple, trachea midline. No JVD or lymphadenopathy. CARDIOVASCULAR: Regular rate and rhythm without murmurs, gallops, or rubs. RESPIRATORY: Breath sounds equal bilaterally. No accessory muscle use. GASTROINTESTINAL: Abdomen soft, non-tender, nondistended. MUSCULOSKELETAL: No cyanosis, or edema. BACK: Nontender without obvious deformity. No CVA tenderness. Data Data Last Documented VS Vital Signs Date Time Temp Pulse Resp B/P (MAP) Pulse Ox O2 Delivery O2 Flow Rate FiO2 09/06/17 02:11 69 19 147/95 (112) 100 Room Air 09/05/17 22:34 98.5 Orders Orders Electrocardiogram (09/06/17 01:54) Basic Metabolic Panel (Bmp) (09/06/17 01:54) Ckmb (Isoenzyme) Profile (09/06/17 01:54) Complete Blood Count With Diff (09/06/17 01:54) Magnesium (Mg) (09/06/17 01:54) Prothrombin Time / Inr (Pt) (09/06/17 01:54) Act Partial Throm Time (Ptt) (09/06/17 01:54) Troponin I (09/06/17 01:54) Ecg Monitoring (09/06/17 01:54) Bilateral Bp Monitoring (09/06/17 01:54) Iv Access Insert/Monitor (09/06/17 01:54) Oximetry (09/06/17 01:54) Oxygen Administration (09/06/17 01:54) Sodium Chloride 0.9% Flush (Ns Flush) (09/06/17 02:00) Chest, Single Ap (09/06/17 ) CKMB (09/06/17 02:05) CKMB% (09/06/17 02:05) Ed Discharge Order (09/06/17 03:36) Labs Laboratory Tests Test 09/06/17 02:05 White Blood Count 7.6 TH/MM3 Red Blood Count 5.05 MIL/MM3 Hemoglobin 14.8 GM/DL Hematocrit 42.6 % Mean Corpuscular Volume 84.3 FL Mean Corpuscular Hemoglobin 29.4 PG Mean Corpuscular Hemoglobin Concent 34.8 % Red Cell Distribution Width 12.1 % Platelet Count 170 TH/MM3 Mean Platelet Volume 10.2 FL Neutrophils (%) (Auto) 58.6 % Lymphocytes (%) (Auto) 27.1 % Monocytes (%) (Auto) 6.5 % Eosinophils (%) (Auto) 6.7 % Basophils (%) (Auto) 1.1 % Neutrophils # (Auto) 4.4 TH/MM3 Lymphocytes # (Auto) 2.1 TH/MM3 Monocytes # (Auto) 0.5 TH/MM3 Eosinophils # (Auto) 0.5 TH/MM3 Basophils # (Auto) 0.1 TH/MM3 CBC Comment DIFF FINAL Differential Comment Prothrombin Time 10.9 SEC Prothromb Time International Ratio 1.1 RATIO Activated Partial Thromboplast Time 25.7 SEC Blood Urea Nitrogen 19 MG/DL Creatinine 1.23 MG/DL Random Glucose 85 MG/DL Calcium Level 9.6 MG/DL Magnesium Level 2.5 MG/DL Sodium Level 140 MEQ/L Potassium Level 4.1 MEQ/L Chloride Level 103 MEQ/L Carbon Dioxide Level 29.4 MEQ/L Anion Gap 8 MEQ/L Estimat Glomerular Filtration Rate 74 ML/MIN Total Creatine Kinase 356 U/L Creatine Kinase MB 2.2 NG/ML Creatine Kinase MB % 0.6 % Troponin I LESS THAN 0.02 NG/ML MDM Medical Decision Making Medical Screen Exam Complete: Yes Emergency Medical Condition: Yes Medical Record Reviewed: Yes Interpretation(s) EKG: Normal sinus rhythm rate [address] elevation injury pattern or ectopy noted Last Impressions Chest X-Ray 09/06/17 0000 Signed Impressions: CONCLUSION: No acute cardiopulmonary process. CBC & BMP Diagram 09/06/17 02:05 Calcium Level 9.6, Magnesium Level 2.5 Vital Signs Date Time Temp Pulse Resp B/P (MAP) Pulse Ox O2 Delivery O2 Flow Rate FiO2 09/06/17 02:11 69 19 147/95 (112) 100 Room Air 09/06/17 02:10 20 100 Room Air 09/06/17 02:10 70 20 149/92 (111) 100 Room Air 09/06/17 02:09 100 Room Air 09/06/17 00:55 68 17 160/97 (118) 100 Room Air 09/05/17 22:34 98.5 68 18 148/99 (115) Troponin I: Less than 0.02, not elevated Differential Diagnosis Palpitations, arrhythmia, electrolyte disturbance, ACS, medication intolerance/ any history Narrative Course Patient reports increasing use of antihistamines primarily Benadryl at bedtime for recent allergic rhinitis and environmental allergies. Patient uses Claritin during the day since starting antihistamines as noticed some improvement of allergic symptoms but has noticed increased blood pressure and palpitations Lab values found to be in normal range EKG no acute injury pattern Chest x-ray shows no lobar infiltrate or vascular congestion Patient is encouraged to discontinue the Inderal at bedtime and only use Claritin during the day Diagnosis Primary Impression: Palpitation Additional Impression: Hypertension Referrals: Primary Care Physician 2 days Patient Instructions: General Instructions Additional Instructions: Continue current medications as presently prescribed Recommend discontinuing bedtime Benadryl/antihistamine May use Nasacort [id number] for sinus congestion and allergic rhinosinusitis. Take blood pressure medication as prescribed Follow-up with your primary care provider call office on Thursday to schedule follow-up appointment Return the emergency department for any concerns or change in condition Disposition: 01 DISCHARGE HOME Condition: Stable Dorothy Le MD Sep 06, 2017 02:10
[2017-09-06 02:11] VITALS: BP 147/95; PULSE 69; RESP 19; O2SAT 100
[2017-09-06 02:20] LABS: AUTOMATED NEUTROPHIL # 4.4 TH/MM3 (1.8-7.7); BASOPHIL # 0.1 TH/MM3 (0-0.2); BASOPHIL % 1.1 % (0.0-2.0); EOSINOPHIL # 0.5 TH/MM3 (0-0.4); EOSINOPHIL % 6.7 % (0.0-4.0); HEMATOCRIT 42.6 % (39.0-51.0); HEMOGLOBIN 14.8 GM/DL (13.0-17.0); LYMPH % 27.1 % (9.0-44.0); LYMPHOCYTE # 2.1 TH/MM3 (1.0-4.8); MEAN CELL VOLUME 84.3 FL (80.0-100.0); MEAN CORPUSCULAR HEMOGLOBIN 29.4 PG (27.0-34.0); MEAN CORPUSCULAR HGB CONC 34.8 % (32.0-36.0); MEAN PLATELET VOLUME 10.2 FL (7.0-11.0); MONO % 6.5 % (0.0-8.0); MONOCYTE # 0.5 TH/MM3 (0-0.9); NEUT % 58.6 % (16.0-70.0); PLATELET COUNT 170 TH/MM3 (150-450); RED BLOOD COUNT 5.05 MIL/MM3 (4.50-5.90); RED CELL DISTRIBUTION WIDTH 12.1 % (11.6-17.2); WHITE BLOOD COUNT 7.6 TH/MM3 (4.0-11.0)
[2017-09-06 02:31] LABS: INTERNATIONAL NORMALIZED RATIO 1.1 RATIO; PROTHROMBIN TIME - PATIENT 10.9 SEC (9.8-11.6)
[2017-09-06 02:46] LABS: BICARBONATE 29.4 MEQ/L (21.0-32.0); BLOOD UREA NITROGEN 19 MG/DL (7-18); CALCIUM 9.6 MG/DL (8.5-10.1); CHLORIDE 103 MEQ/L (98-107); CREATININE 1.23 MG/DL (0.60-1.30); GLOMERULAR FILTRATION RATE 74 ML/MIN (>89); GLUCOSE,RANDOM 85 MG/DL (74-106); MAGNESIUM 2.5 MG/DL (1.5-2.5); SODIUM (NA) 140 MEQ/L (136-145); TROPONIN I LESS THAN 0.02 NG/ML (0.02-0.05)
--- NOTE | 2017-09-06 02:54 | RADRPT ---
EXAM DATE: 09/06/2017 2:17 AM EDT AGE/SEX: 52 years / Male INDICATIONS: Hypertensive episode. CLINICAL DATA: This is the patient's initial encounter. Patient reports that signs and symptoms have been present for 1 day and indicates a pain score of 0/10. MEDICAL/SURGICAL HISTORY: Hypertension. None. COMPARISON: No prior [facility] exams available for comparison. FINDINGS: A single AP view of the chest demonstrates the lungs to be symmetrically aerated without evidence of mass, infiltrate or effusion. The cardiomediastinal contours are unremarkable. Osseous structures a re intact. CONCLUSION: No acute cardiopulmonary process. Electronically signed by: Lavelle Hoover MD 09/06/2017 2:53 AM EDT
--- NOTE | 2017-09-06 15:46 | EKG ---
Date Performed: 09/06/2017 Time Performed: 02:38:39 PTAGE: 52 years EKG: Sinus rhythm with first degree AV block Slight ST changes of early repolarization NORMAL ECG PREVIOUS TRACING : 02/22/2017 02.38 OK interval should be listed as 0.22. Since previous tracin g, QRS voltage is slightly decreased, otherwise no significant change. DOCTOR: Dmitry Peña Interpretating Date/Time 09/06/2017 15:46:15
== END 2017-09-06 04:32 | disposition home or self-care (01) ==
LOC: NEPC 22:03
DX: R00.2 Palpitations (principal); I10 Essential (primary) hypertension; Z79.899 Other long term (current) drug therapy
CPT/HCPCS: 71045; 80048; 82550; 82552; 83735; 84484; 85025; 85610; 85730; 93005